=== PATIENT | female | born 1955 | race Caucasian/White ===

== ENCOUNTER 2022-02-25 00:16 | Outpatient (CLI) | payer OTHER, MEDICAID, SELFPAY | END 2022-02-25 00:17 | disposition home or self-care (01) | LOC: AMB 03-04 10:19 | PROVIDERS: PCP Family Medicine; Visit Provider Family Medicine | DX: R53.1 Weakness (principal) | CPT/HCPCS: A0425; A0427 ==

== ENCOUNTER 2022-02-25 00:53 | Emergency (ER) | payer OTHER, MEDICAID, SELFPAY ==
[2022-02-25 01:00] VITALS: BP 147/111; PULSE 110; RESP 18; TEMP 36.8; O2SAT 96; BMI 33.9
--- NOTE | 2022-02-25 01:01 | ED.GENADULT ---
HPI - General Adult General Chief complaint: Fall/Minor Trauma Stated complaint: fall Time Seen by Provider: 02/25/22 01:01 Source: patient and EMS Mode of arrival: EMS History of Present Illness HPI narrative: 66-year-old female presents to the emergency department by EMS. She reports that she fell today, does not remember what time. states that her legs have felt weak today, no specific fever or acute illness. She does not recall hitting her head. She read endorses some pain in the right ankle and right knee which she states are ongoing for her. She denies any pain at the scene according to EMS. They do report that her apartment was in some disarray. No obvious signs struggles or trauma. On specific questioning, she does admit to me that she has had a few beers and a couple of shots of rum. She does not elaborate on this. She was unable to get herself up per her report. She states that the last thing she remembered she was watching videos on her phone and then when she woke up she was on the floor. Denies any specific stroke-like symptoms, no hemiparesis, no vision changes, no confusion. 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 She arrives greeting all staff, asking for specific staff members, very social. She notes no hip pain, no back pain today. No recent fevers or illness. Denies any typical issues with urine control. EMS stated that she was incontinent of urine at the scene. Denies any bowel dysfunction. she states the history is benign. No major long-term health problems. She denies any recent surgeries, states that she takes no prescription medications, no allergies. ROS is notable for weakness in the legs, nonfocal with some scattered musculoskeletal complaints that wax and wane frequently throughout the interview. Specifically, she endorses and then denies pain in different Lower extremity joints. ROS is otherwise negative times 12 systems. Related Data Home Medications Medication Instructions Recorded Confirmed No Known Home Medications 02/25/22 02/25/22 Allergies Allergy/AdvReac Type Severity Reaction Status Date / Time No Known Drug Allergies Allergy Verified 02/25/22 01:49 PFSH PFS Social History Smoking Status: Current every day smoker How often do you have a drink containing alcohol: 2-3 times a week AUDIT-C Alcohol total score: 3 Non-prescribed substance use: denies use Exam Const: Vital Signs, click to edit/add: Vital Signs - 24 hr 02/25/22 01:00 02/25/22 01:46 02/25/22 01:30 Temperature 98.2 F Pulse Rate [Right Pulse Oximeter] 110 H 109 H Respiratory Rate 18 18 Blood Pressure [Le ft Upper Arm] 143/91 H Blood Pressure [Ri ght Upper Arm] 147/111 H Pulse Oximetry 96 96 99 Oxygen Delivery Me thod Room Air Room Air Documenting provider has reviewed patient's vital signs: yes Common normals: no apparent distress and alert General appearance: cooperative Orientation/consciousness: Yes awake Other: Generally, she looks as though she has aged quite a bit since I last saw her a couple of years ago. Social, talking with staff, asking for staff and other parts of the hospital to come say hi, she is unkempt today with kim litter strewn on her face, a smell of urine and a dirty nightgown with no bra. Her hair appears to not have been washed in many days. HENMT: Common normals: normocephalic and head/scalp atraumatic Head and scalp: normocephalic and atraumatic Face and sinus: normal facial exam Mouth: oral and palatal mucosa normal Throat: posterior oropharynx normal Eye: Common normals: PERRL, EOMs intact bilaterally and conjunctivae normal Conjunctiva: conjunctiva(e) normal Pupil: PERRL Neck & C-Spine: Common normals: full ROM, no lymphadenopathy and no meningeal signs Lymph: Lymphatic: no lymphadenopathy noted Resp: Common normals: normal respiratory effort, no use of accessory muscles and clear to auscultation bilaterally Effort & inspection: able to speak in complete sentences Auscultation: clear to auscultation bilaterally Cardio: Common normals: regular rate, regular rhythm, S1 normal heart sound, S2 normal heart sound, no murmurs and peripheral pulses 2+ throughout Rate: regular rate Rhythm: regular rhythm Heart sounds: S1 normal and S2 normal Peripheral pulses: pulses 2+ throughout GI: Common normals: Normal to inspection, nondistended, normoactive bowel sounds present, soft to palpation, non-tender and no hepatosplenomegaly Palpation: soft and no hepatosplenomegaly Back & Pelvis: Common normals: thoracic and lumbar spine normal to inspection and no thoracic nor lumbar tenderness Extremity: Other: she has a 1+ dependent seeming edema. I examined the ankle, knee and hip joints and they all have normal range of motion with no point bony tenderness or deformity. No effusions, redness or signs of trauma. Neuro: Sensorium/orientation: awake and alert Meningeal signs: no meningeal signs Speech: speech normal Motor exam: no tremor noted and no movement abnormalities noted Other: Can move all extremities on command. Smells of alcohol. Psych: Attitude: engaged Mood and affect: euthymic mood Insight: fair Judgement: fair Skin: Common normals: no rashes or lesions noted Narrative: No bruising, abrasions or signs of trauma. General skin exam: no rashes or lesions noted Course Vital Signs Vital signs: Initial Vital Signs Temperature 98.2 F 02/25/22 01:00 Temperature Source Temporal Artery Scan 02/25/22 01:00 Pulse Rate 110 H 02/25/22 01:00 Respiratory Rate 18 02/25/22 01:00 Blood Pressure 147/111 H 02/25/22 01:00 Blood Pressure Mean 123 02/25/22 01:00 Blood Pressure Position Supine 02/25/22 01:00 Pulse Oximetry 96 02/25/22 01:00 Oxygen Delivery Method 02/25/22 01:00 Vital Signs Temperature 98.2 F 02/25/22 01:00 Pulse Rate 110 H 02/25/22 01:00 Respiratory Rate 18 02/25/22 01:00 Blood Pressure 147/111 H 02/25/22 01:00 Pulse Oximetry 96 02/25/22 01:00 Oxygen Delivery Method 02/25/22 01:00 Temperature 98.2 F 02/25/22 01:00 Pulse Rate 109 H 02/25/22 01:46 Respiratory Rate 18 02/25/22 01:46 Blood Pressure 143/91 H 02/25/22 01:46 Pulse Oximetry 96 02/25/22 01:46 Oxygen Delivery Method 02/25/22 01:46 Medical Decision Making MDM Narrative Medical decision making narrative: Vital signs normal, afebrile with no signs of sepsis. Differential diagnosis including most likely alcohol intoxication, but cannot exclude stroke, sepsis, electrolyte dysfunction, dehydration, acute illness. Neurological exam is initially reassuring, will attempt to get her up to the bathroom to collect a urine sample. Will observe for any further focal neurological deficits. Basic labs including an alcohol level, COVID and influenza swabs. Urinalysis. Awaiting lab results. If any further deficits are seen on attempted ambulation, will order head CT, consider lumbar spine imaging if there are more deficits than initially suspected on exam. Update: 0120: Patient is able to get out of bed, stand, pivot transfer with a walker to use the bedside commode. She is able to get back into the bed with assistance. When the nurse asks her if her legs are moving better here than in her apartment, she states that no, they are still weak. Does not seem to have insight to the fact that she just did these maneuvers without difficulty. Update 150: Counseled patient on laboratory findings. Signs of chronic alcoholism due to elevated MCV, elevated liver enzymes, blood alcohol level of 0.21. Verbalize these findings to patient, she verbalizes understanding. She agrees with my assessment. I ask for her permission to tell her daughter about the alcohol problem, she does consent to this. She had asked us repeatedly to call her daughter and we will do so. If her daughter is available to pick her up, she may do so. She will need an adult to stay with her since she is intoxicated. She is receiving 1 L of fluids for the elevated lactate which is thought to be secondary to alcohol and dehydration only. Remainder of her laboratory studies are reassuring. Since she is able to bear weight, pivot and move without difficulty, she does not need to be hospitalized nor does she need further imaging workup this time. She was counseled on alcohol cessation, declines the need for further resources on this. Lab Data Lab results reviewed: Yes I reviewed the patient's lab results Labs: Lab Results 02/25/22 02/25/22 02/25/22 Range/Units 01:00 01:15 01:15 WBC 9.18 (4.50-11.00) K/uL RBC 3.93 L (4.00-5.20) m/uL Hgb 14.5 (12.0-16.0) gm/dL Hct 42.6 (33.0-51.0) % MCV 108 H (80-100) fL MCH 37 H (26-34) pg MCHC 34 (32-36) gm/dL RDW Coeff of Chivo 14.4 (11.5-15.5) % Plt Count 174 (140-440) K/uL Neut % (Auto) 81.6 H (42.0-72.0) % Lymph % (Auto) 9.7 L (20-44) % [place]ade % (Auto) 7.7 (0.0-11.0) % Eos % (Auto) 0.4 (0.0-7.0) % Baso % (Auto) 0.3 (0.0-3.0) % Neut # (Auto) 7.50 H (1.7-7.0) K/uL Lymph # (Auto) 0.90 (0.90-2.90) K/uL Dade # (Auto) 0.70 (0.00-0.90) K/UL Eos # (Auto) 0.04 (0.00-0.50) K/uL Baso # (Auto) 0.03 (0.00-0.30) K/uL Abs Immat Gran (auto) 0.03 (0.00-0.30) K/uL Imm/Tot Granulo (auto) 0.3 % Sodium 138 (135-149) mmol/L Potassium 3.6 (3.6-5.1) mmol/L Chloride 100 (96-114) mmol/L Carbon Dioxide 22 (20-32) mmol/L BUN 4 L (7-30) mg/dL Creatinine 0.4 L (0.5-1.5) mg/dL Estimated GFR 110 ml/min Glucose 123 H (60-115) mg/dL Lactate (0.5-1.9) mmol/L Calcium 9.8 (8.4-10.6) mg/dL Total Bilirubin 1.4 (0.1-1.5) mg/dL AST 250 H (12-35) U/L ALT 79 H (4-35) U/L Alkaline Phosphatase 198 H (40-150) U/L Total Protein 7.7 (6.0-8.3) g/dL Albumin 4.3 (3.3-5.0) g/dL Urine Color (Yellow) Urine Appearance (Clear) Urine pH (5.0-8.5) Ur Specific [place] (1.000-1.030) Urine Protein (Negative) Urine Glucose (UA) (Negative) Urine Ketones (Negative) Urine Blood (Negative) Urine Nitrite (Negative) Urine Bilirubin (Negative) Urine Urobilinogen (0.2-1.0) Ur Leukocyte Esterase (Negative) Urine RBC (0-2) Urine WBC (0-5) Ur Squamous Epith Cells (None-Few) Urine Bacteria (None) Ethyl Alcohol 0.21 H (0.01-0.03) % SARS-CoV-2 (PCR) Negative SARS-CoV-2 (Negative) Influenza Type A (PCR) Negative PCR FLU A (Negative) Influenza Type B (PCR) Negative PCR FLU B (Negative) 02/25/22 02/25/22 Range/Units 01:15 01:30 WBC (4.50-11.00) K/uL RBC (4.00-5.20) m/uL Hgb (12.0-16.0) gm/dL Hct (33.0-51.0) % MCV (80-100) fL MCH (26-34) pg MCHC (32-36) gm/dL RDW Coeff of Chivo (11.5-15.5) % Plt Count (140-440) K/uL Neut % (Auto) (42.0-72.0) % Lymph % (Auto) (20-44) % [place] % (Auto) (0.0-11.0) % Eos % (Auto) (0.0-7.0) % Baso % (Auto) (0.0-3.0) % Neut # (Auto) (1.7-7.0) K/uL Lymph # (Auto) (0.90-2.90) K/uL [place] # (Auto) (0.00-0.90) K/UL Eos # (Auto) (0.00-0.50) K/uL Baso # (Auto) (0.00-0.30) K/uL Abs Immat Gran (auto) (0.00-0.30) K/uL Imm/Tot Granulo (auto) % Sodium (135-149) mmol/L Potassium (3.6-5.1) mmol/L Chloride (96-114) mmol/L Carbon Dioxide (20-32) mmol/L BUN (7-30) mg/dL Creatinine (0.5-1.5) mg/dL Estimated GFR ml/min Glucose (60-115) mg/dL Lactate 3.4 H (0.5-1.9) mmol/L Calcium (8.4-10.6) mg/dL Total Bilirubin (0.1-1.5) mg/dL AST (12-35) U/L ALT (4-35) U/L Alkaline Phosphatase (40-150) U/L Total Protein (6.0-8.3) g/dL Albumin (3.3-5.0) g/dL Urine Color Yellow (Yellow) Urine Appearance Clear (Clear) Urine pH 7.0 (5.0-8.5) Ur Specific [place] 1.010 (1.000-1.030) Urine Protein Negative (Negative) Urine Glucose (UA) Negative (Negative) Urine Ketones 1+ A (Negative) Urine Blood Negative (Negative) Urine Nitrite Negative (Negative) Urine Bilirubin Negative (Negative) Urine Urobilinogen 1.0 (0.2-1.0) Ur Leukocyte Esterase Trace A (Negative) Urine RBC 0-2 (0-2) Urine WBC 0-2 (0-5) Ur Squamous Epith Cells Few (None-Few) Urine Bacteria None (None) Ethyl Alcohol (0.01-0.03) % SARS-CoV-2 (PCR) (Negative) Influenza Type A (PCR) (Negative) Influenza Type B (PCR) (Negative) Discharge Plan Discharge Clinical Impression: Alcoholism, chronic, Alcohol intoxication Patient Disposition: Home w/ Parent or Adult Condition: Stable Instructions: Alcohol Intoxication (ED), Abuse of Alcohol (DC) Additional Instructions: You passed out from drinking alcohol. Labs clearly show that you are drinking too much alcohol for quite some time. Your liver is showing signs of some mild chronic damage and your MCV level, a component of your basic blood count also shows signs of ongoing alcohol use. This is a problem for you. You must quit drinking alcohol. Seek input from the [facility] department. As we discussed, I recommend you start with getting all alcohol out of your house and that you stop purchasing it. Seek input from family and friends for support. Your report that your legs are weak but we watch you get out of bed, ambulate to the bathroom, and get back in bed without difficulty. I suspect that the alcohol intoxication is making things weaker than usual for you. Chronic alcohol use will also lead to muscle weakness. There were no signs of a stroke or sudden new change today. You do not require hospitalization at this time. We gave you for the help counteract the effects of the alcohol. Please make an appointment with a primary care doctor to have your liver enzymes rechecked in a few weeks to ensure that things are healing as you quit drinking alcohol. Your blood pressure is also mildly elevated and should be recheck. This is a common finding in people that drink too much alcohol. Activity Level: No Restrictions Discharge Diet: Regular Prescriptions: No Action No Known Home Medications Follow Up/Referrals: Flora Parker MD [Primary Care Provider] - Stand Alone Forms: Stere[employer] Info Instructions
[2022-02-25 01:21] LABS: Lactate* 3.4 mmol/L (0.5-1.9)
[2022-02-25 01:22] LABS: Basophils Absolute Auto 0.03 K/uL (0.00-0.30); Basophils Percent Auto 0.3 % (0.0-3.0); Eosinophils Absolute Auto 0.04 K/uL (0.00-0.50); Eosinophils Percent Auto 0.4 % (0.0-7.0); Hematocrit 42.6 % (33.0-51.0); Hemoglobin* 14.5 gm/dL (12.0-16.0); Immature Granulocytes Abs Auto 0.03 K/uL (0.00-0.30); Immature Granulocytes Pct Auto 0.3 %; Lymphocytes Percent Auto 9.7 % (20-44); Mean Corpuscular HGB Conc 34 gm/dL (32-36); Mean Corpuscular Hemoglobin 37 pg (26-34); Mean Corpuscular Volume 108 fL (80-100); Monocytes Percent Auto 7.7 % (0.0-11.0); Neutrophils Percent Auto 81.6 % (42.0-72.0); Platelet Count* 174 K/uL (140-440); RDW Coefficient of Variation % 14.4 % (11.5-15.5); Red Blood Count 3.93 m/uL (4.00-5.20); White Blood Count* 9.18 K/uL (4.50-11.00)
[2022-02-25 01:25] LABS: Slide Review Reflex No
[2022-02-25 01:30] VITALS: O2SAT 99
[2022-02-25 01:36] LABS: Appearance Urine Clear (Clear); Bilirubin Urine Negative (Negative); Blood Urine Negative (Negative); Color Urine Yellow (Yellow); Glucose Urine Negative (Negative); Ketones Urine 1+ (Negative); Leukocyte Esterase Urine Trace (Negative); Nitrite Urine Negative (Negative); Protein Urine Negative (Negative)
[2022-02-25 01:37] LABS: Albumin* 4.3 g/dL (3.3-5.0); Chloride* 100 mmol/L (96-114); Sodium* 138 mmol/L (135-149)
[2022-02-25 01:38] LABS: Potassium* 3.6 mmol/L (3.6-5.1)
[2022-02-25 01:40] LABS: Alanine Aminotransferase* 79 U/L (4-35); Alkaline Phosphatase* 198 U/L (40-150); Aspartate Amino Transferase* 250 U/L (12-35); Bilirubin Total* 1.4 mg/dL (0.1-1.5); Blood Urea Nitrogen* 4 mg/dL (7-30); Calcium* 9.8 mg/dL (8.4-10.6); Carbon Dioxide* 22 mmol/L (20-32); Creatinine* 0.4 mg/dL (0.5-1.5); Estimated Glomerular Filt Rate 110 ml/min; Glucose* 123 mg/dL (60-115); Total Protein* 7.7 g/dL (6.0-8.3)
[2022-02-25] MEDS: LACTATED RINGERS 1000 ML 1,000 ML IV (01:40)
[2022-02-25] MEDS: IBUPROFEN 400 MG TABLET 800 MG PO (01:40)
[2022-02-25 01:41] LABS: Ethanol* 0.21 % (0.01-0.03)
[2022-02-25 01:43] LABS: PCR FLU A Negative PCR FLU A (Negative); PCR FLU B Negative PCR FLU B (Negative)
[2022-02-25 01:44] LABS: RBC Urine 0-2 (0-2); Squamous Epithelial Cell Urine Few (None-Few); WBC Urine 0-2 (0-5)
[2022-02-25 01:46] VITALS: BP 143/91; PULSE 109; RESP 18; O2SAT 96
[2022-02-25 01:49] LABS: SARS PCR* Negative SARS-CoV-2 (Negative)
[2022-02-25 01:55] LABS: C Reactive Protein* 3.7 mg/dL (0.5-1.0)
[2022-02-25 02:50] VITALS: BP 133/89; PULSE 99; RESP 18; TEMP 36.8
--- NOTE | 2022-02-25 06:09 | ED.NURSE ---
pt requested update to dtr previously, unable to get a hold of dtr, dtr did call back at 0610, update on patient visit and discharge home with friend.
== END 2022-02-25 02:51 | disposition home or self-care (01) ==
PROVIDERS: Emergency Provider Family Medicine; PCP Family Medicine
DX: F10.129 Alcohol abuse with intoxication, unspecified (principal)
CPT/HCPCS: 36415; 80053; 81003; 81015; 82077; 83605; 85025; 86140; 87631; 94761; 99283; A9270; J7120

== ENCOUNTER 2022-03-08 18:13 | Outpatient (CLI) | payer OTHER, MEDICAID, SELFPAY | END 2022-03-08 18:14 | disposition home or self-care (01) | LOC: AMB 03-12 12:23 | PROVIDERS: PCP Family Medicine; Visit Provider Emergency Medicine Emergency Medical Services | DX: R53.1 Weakness (principal) | CPT/HCPCS: A0425; A0429 ==

== ENCOUNTER 2022-03-08 19:02 | Inpatient (IN) | payer OTHER, MEDICAID, SELFPAY ==
[2022-03-08] VITALS (9 sets, daily range): BP systolic 146–152; BP diastolic 85–98; PULSE 96–104; RESP 16; TEMP 36.4; O2SAT 94–97; BMI 45.3
--- NOTE | 2022-03-08 20:05 | CRLHL7_ITS ---
For Patients: As a result of the Century Cures Act, medical imaging exams and procedure reports are released immediately into your electronic medical record. You may view this report before your referring provider. If you have questions, please contact your health care provider. INDICATION: Fall. TECHNIQUE: Three views of left ankle. COMPARISON: None available. FINDINGS: Diffuse demineralization. Oblique fracture involving the fibular distal metadiaphysis with minimal lateral displacement. No dislocation or additional fracture identified. The ankle mortise appears not widened. Mild tibiotalar joint space narrowing and osteophytosis. Plantar calcaneal enthesophyte. Generalized soft tissue edema/thickening. IMPRESSION: Minimally displaced left distal fibular fracture. Dictated by John Calvert MD @ 03/08/2022 8:53:33 PM Dictated by: John Calvert MD @ 03/08/2022 20:53:37 (Electronically Signed)
--- NOTE | 2022-03-08 20:17 | ED.NURSE ---
Pt reports NOT taking the following: Naproxen 500mg BID (3 bottles partially filled) Cyclobenzaprine 10mg HS PRN Atenolol 25mg Daily Lorazepam 0.5mg 1-2 tabs daily PRN D[address] 500mg HS Lisinopril/HCTZ 10-12.5mg Daily Naltrexone 50mg daily Trazodone 50mg HS PRN (adverse effects: bad dreams, hostility, anger) HCTZ 12.5mg daily Tramadol 50mg 1-2tabs q6hrs PRN Amlodipine 5mg daily Abx: Cephalexin 500mg 4 times a day x5days Bactrim 800-160mg BID X7days Augmentin 875-125mg BID [id number] (3 bottles of partially filled)
[2022-03-08 20:19] LABS: Lactate* 0.9 mmol/L (0.5-1.9)
[2022-03-08 20:21] LABS: Basophils Absolute Auto 0.06 K/uL (0.00-0.30); Basophils Percent Auto 0.6 % (0.0-3.0); Eosinophils Absolute Auto 0.07 K/uL (0.00-0.50); Eosinophils Percent Auto 0.6 % (0.0-7.0); Hematocrit 39.5 % (33.0-51.0); Hemoglobin* 13.6 gm/dL (12.0-16.0); Immature Granulocytes Abs Auto 0.12 K/uL (0.00-0.30); Immature Granulocytes Pct Auto 1.1 %; Lymphocytes Percent Auto 7.5 % (20-44); Mean Corpuscular HGB Conc 34 gm/dL (32-36); Mean Corpuscular Hemoglobin 37 pg (26-34); Mean Corpuscular Volume 107 fL (80-100); Monocytes Percent Auto 9.7 % (0.0-11.0); Neutrophils Percent Auto 80.5 % (42.0-72.0); Platelet Count* 211 K/uL (140-440); RDW Coefficient of Variation % 13.9 % (11.5-15.5); White Blood Count* 10.87 K/uL (4.50-11.00)
[2022-03-08 20:34] LABS: Slide Review Reflex No
--- NOTE | 2022-03-08 20:34 | CRLHL7_ITS ---
For Patients: As a result of the Century Cures Act, medical imaging exams and procedure reports are released immediately into your electronic medical record. You may view this report before your referring provider. If you have questions, please contact your health care provider. DATE: 03/08/2022. CLINICAL HISTORY: Fall. TECHNIQUE: Standard helical CT image acquisition of the brain was performed. COMPARISON: Head CT dated 11/26/2013. FINDINGS: There is no intracranial hemorrhage. No extra-axial collection, mass effect, or midline shift. Stephens-white matter differentiation is preserved. Mild generalized parenchymal volume loss. No acute hydrocephalus. No displaced calvarial fracture. The orbits are unremarkable. The paranasal sinuses are unremarkable. The mastoid air cells are unremarkable. The soft tissues are unremarkable. IMPRESSION: No CT evidence of acute intracranial abnormality or closed-head injury. Please note that all CT scans at this facility use dose modulation, iterative reconstruction, and/or weight-based dosing when appropriate to reduce radiation dose to as low as reasonably achievable. Dictated by Addi Jose MD @ 03/08/2022 9:31:02 PM (Electronically Signed)
--- NOTE | 2022-03-08 20:35 | CRLHL7_ITS ---
For Patients: As a result of the Century Cures Act, medical imaging exams and procedure reports are released immediately into your electronic medical record. You may view this report before your referring provider. If you have questions, please contact your health care provider. DATE: CLINICAL HISTORY: Trauma. TECHNIQUE: Helical CT acquisition of the cervical spine was performed. Coronal and sagittal reformations were performed and interpreted. COMPARISON: None available. FINDINGS: There is no evidence of acute displaced fracture or traumatic malalignment of the cervical spine. The facets are well aligned. Vertebral body heights are maintained without evidence of significant compression deformity. No evidence of significant trauma at the craniocervical junction. Mild cervical spondylosis. No evidence of severe spinal canal stenosis. The visualized prevertebral soft tissues are unremarkable. The visualized lung apices are unremarkable. IMPRESSION: No acute displaced fracture or traumatic malalignment of the cervical spine. Please note that all CT scans at this facility use dose modulation, iterative reconstruction, and/or weight-based dosing when appropriate to reduce radiation dose to as low as reasonably achievable. Dictated by Addi Jose MD @ 03/08/2022 9:33:25 PM (Electronically Signed)
--- NOTE | 2022-03-08 20:38 | ED.WEAKNESS ---
HPI - Weakness General Chief complaint: Weakness Stated complaint: Weakness Time Seen by Provider: 03/08/22 19:58 History of Present Illness HPI Narrative: Pt is a 67 year old woman who was seen and found to be intoxicated 11 days ago. At that time she presented with weakness and was found to have fallen. She was complaining of left ankle pain as well. Pt was found to have a blood alcohol of 0.21 and had mild elevation of her AST and ALT. Pt was treated and released. Pt has not been able to function since that time and her daughter has been providing care. Pt is unable to put wait on her left leg. Pt has a history of alcohol abuse and has stopped all of her medications as listed below. She is currently not taking any medications. Pt has no chest pain, shortness of breath, fevers, chills, night sweats. She does state that her urine is foul smelling. No ther symptoms beyond generalized weakness. Related Data Home Medications Medication Instructions Recorded Confirmed No Known Home Medications 02/25/22 02/25/22 Allergies Allergy/AdvReac Type Severity Reaction Status Date / Time No Known Drug Allergies Allergy Verified 02/25/22 01:49 Review of Systems Status of ROS: Reports: 10 or more systems reviewed and unremarkable except as noted in History and below [facility] Medical History (Updated 03/09/22 @ 01:22 by Omkar Bansal MD) Anxiety and depression Bipolar disorder (2009) Chronic low back pain Hypertension Malignant melanoma (2012) Osteopenia Poorly controlled mild persistent asthma Vitamin D deficiency (2017) Surgical History (Updated 03/08/22 @ 20:46 by Omkar Bansal MD) History of carpal tunnel surgery of right wrist (2008) History of hysterectomy (1991) History of melanoma excision (2012) History of tonsillectomy Social History Smoking Status: Former smoker Second hand tobacco smoke exposure: No How often do you have a drink containing alcohol: monthly or less AUDIT-C Alcohol total score: 1 Non-prescribed substance use: denies use service: No Exam Narrative: Exam Narrative: EXAM GENERAL: Patient appears disheveled and unkept EYES: No scleral icterus. THYROID: no thyroid nodules or thyromegaly. LYMPH: No supraclavicular or cervical lymphadenopathy. SKIN: Visible skin seen during exam normal or with benign process only. EXT: No dependent lower extremity pedal edema. Pain and swelling noted in the left ankle. HEART: Regular rate and rhythm with no murmurs, rubs, or gallops. LUNGS: Clear to auscultation bilaterally with no crackles or wheezes. ABD: Soft, non tender, non distended. PSYCH: Good eye contact, speech is not pressured. Const: Vital Signs, click to edit/add: Vital Signs - 24 hr 03/08/22 19:04 03/08/22 19:47 03/08/22 19:47 Temperature 97.5 F L Pulse Rate 97 Pulse Rate [Pulse Oximeter] 103 H 96 Respiratory Rate 16 Blood Pressure Blood Pressure [Le ft Upper Arm] 152/95 H 147/90 H Pulse Oximetry 96 96 96 Oxygen Delivery Me thod Room Air 03/08/22 20:00 03/08/22 20:02 03/08/22 20:15 Temperature Pulse Rate 96 104 H 101 H Pulse Rate [Pulse Oximeter] Respiratory Rate Blood Pressure 152/98 H Blood Pressure [Le ft Upper Arm] Pulse Oximetry 96 96 96 Oxygen Delivery Me thod 03/08/22 21:04 03/08/22 22:00 03/08/22 22:02 Temperature Pulse Rate 100 96 97 Pulse Rate [Pulse Oximeter] Respiratory Rate Blood Pressure 150/85 H Blood Pressure [Le ft Upper Arm] Pulse Oximetry 97 95 94 Oxygen Delivery Me thod 03/08/22 23:48 03/09/22 01:30 03/09/22 04:30 Temperature 98.0 F 98.8 F Pulse Rate Pulse Rate [Pulse Oximeter] 100 96 98 Respiratory Rate 16 16 14 Blood Pressure Blood Pressure [Le ft Upper Arm] 146/92 H 148/81 H 154/83 H Pulse Oximetry 94 94 93 Oxygen Delivery Me thod Room Air Room Air Course Course Hospital Course: Medications at the patient has discontinued the following Naproxin, Cyclobenzaprine, Atenolol, Lorazepam, Divalproex, Lisinopril, HCTZ, Naltrexone, Trazodone, Tramadol, Amlodipine Xray of the left ankle, CT of the head and neck, etoh, tox screen, cbc, cmp, lactate, troponin, ekg ordered Reevaluation(s) Reevaluation #1: Pt has UTI noted on UA. Urine and blood cultured and pt given a dose of IV Rocephin. Other labs show chronically elevated AST, ALT and Alk Phos. Troponin negative. EKG nsr. Toxicollogy and ETOH negative. Time: 12:30 Reevaluation #2: CAM walker placed on left ankle due to fibular fracture. Pt needs to board in ED. Given Thaimine, Folate and Multivitamin as well as Ativan and placed on CIWA protocol Pt unable to care for self at home. Time: 01:13 Vital Signs Vital signs: Initial Vital Signs Temperature 97.5 F L 03/08/22 19:04 Temperature Source Temporal Artery Scan 03/08/22 19:04 Pulse Rate 103 H 03/08/22 19:04 Respiratory Rate 16 03/08/22 19:04 Blood Pressure 152/95 H 03/08/22 19:04 Blood Pressure Mean 114 03/08/22 19:04 Pulse Oximetry 96 03/08/22 19:04 Oxygen Delivery Method 03/08/22 19:04 Vital Signs Temperature 97.5 F L 03/08/22 19:04 Pulse Rate 103 H 03/08/22 19:04 Respiratory Rate 16 03/08/22 19:04 Blood Pressure 152/95 H 03/08/22 19:04 Pulse Oximetry 96 03/08/22 19:04 Oxygen Delivery Method 03/08/22 19:04 Temperature 98.8 F 03/09/22 04:30 Pulse Rate 98 03/09/22 04:30 Respiratory Rate 14 03/09/22 04:30 Blood Pressure 154/83 H 03/09/22 04:30 Pulse Oximetry 93 03/09/22 04:30 Oxygen Delivery Method 03/09/22 04:30 MDM - Weakness MDM Narrative Medical decision making narrative: Pt presents unable to walk and take care of herself. Pt was seen 11 days ago at which time she was intoxicated. Pt treated and released. Pt has been unable to bear weight on the left leg. X ray tonight shows fibular fracture which is placed in a CAM walker until ortho can see her. Pt also weak and has UTI. Given IV Rocephin and Urine and blood cultured. Pt has evidence of alcoholic hepatitis. Pt placed on CIWA protocol and will board in the ED as no beds available and pt unable to care for herself. Pt also brings in a bag of meds that she has stopped as she is not on any presciption medications currently. Pt has Bipolar disorder. Pt is a safety risk and will need to stay. Because she has a history of alcohol abuse I did scan her head and cervical spine. No fractures. Pt also complained of pain and swelling in the left leg antwan ultrasound negative for clot. Pt boarded in the ED overnight and is now admitted. Differential Diagnosis Differential diagnosis: Likely acute myocardial infarction, anemia, hypoglycemia, hypothyroidism, rhabdomyolysis, sepsis and dehydration Lab Data Labs: Lab Results 03/08/22 03/08/22 03/08/22 Range/Units 20:14 20:14 20:14 WBC 10.87 (4.50-11.00) K/uL RBC 3.70 L (4.00-5.20) m/uL Hgb 13.6 (12.0-16.0) gm/dL Hct 39.5 (33.0-51.0) % MCV 107 H (80-100) fL MCH 37 H (26-34) pg MCHC 34 (32-36) gm/dL RDW Coeff of [place]ivo 13.9 (11.5-15.5) % Plt Count 211 (140-440) K/uL Neut % (Auto) 80.5 H (42.0-72.0) % Lymph % (Auto) 7.5 L (20-44) % [place] % (Auto) 9.7 (0.0-11.0) % Eos % (Auto) 0.6 (0.0-7.0) % Baso % (Auto) 0.6 (0.0-3.0) % Neut # (Auto) 8.80 H (1.7-7.0) K/uL Lymph # (Auto) 0.80 L (0.90-2.90) K/uL [place] # (Auto) 1.10 H (0.00-0.90) K/UL Eos # (Auto) 0.07 (0.00-0.50) K/uL Baso # (Auto) 0.06 (0.00-0.30) K/uL Sodium 132 L (135-149) mmol/L Potassium 3.4 L (3.6-5.1) mmol/L Chloride 98 (96-114) mmol/L Carbon Dioxide 26 (20-32) mmol/L BUN 8 (7-30) mg/dL Creatinine 0.4 L (0.5-1.5) mg/dL Estimated Creat Clear 41.76 Estimated GFR 109 ml/min Glucose 115 (60-115) mg/dL Lactate 0.9 (0.5-1.9) mmol/L Calcium 9.3 (8.4-10.6) mg/dL Total Bilirubin 1.6 H (0.1-1.5) mg/dL AST 222 H (12-35) U/L ALT 90 H (4-35) U/L Alkaline Phosphatase 195 H (40-150) U/L Troponin I < 0.01 L (0.01-0.04) ng/mL Total Protein 7.6 (6.0-8.3) g/dL Albumin 4.3 (3.3-5.0) g/dL Urine Color (Yellow) Urine Appearance (Clear) Urine pH (5.0-8.5) Ur Specific [place] (1.000-1.030) Urine Protein (Negative) Urine Glucose (UA) (Negative) Urine Ketones (Negative) Urine Blood (Negative) Urine Nitrite (Negative) Urine Bilirubin (Negative) Urine Urobilinogen (0.2-1.0) Ur Leukocyte Esterase (Negative) Urine RBC (0-2) Urine WBC (0-5) Ur Squamous Epith Cells (None-Few) Urine Bacteria (None) Urine Opiates Screen (Negative) Ur Oxycodone Screen (Negative) Urine Methadone Screen (Negative) Ur Propoxyphene Screen (Negative) Ur Barbiturates Screen (Negative) U Tricyclic Antidepress (Negative) Ur Phencyclidine Scrn (Negative) Ur Amphetamines Screen (Negative) U Methamphetamines Scrn (Negative) U Benzodiazepines Scrn (Negative) Urine Cocaine Screen (Negative) U Marijuana (THC) Screen (Negative) Ur Drug Screen Comment Ethyl Alcohol < 0.01 L (0.01-0.03) % SARS-CoV-2 (PCR) (Negative) Influenza Type A (PCR) (Negative) Influenza Type B (PCR) (Negative) RSV (PCR) (Negative) 03/08/22 03/08/22 03/09/22 Range/Units 20:45 20:45 01:10 WBC (4.50-11.00) K/uL RBC (4.00-5.20) m/uL Hgb (12.0-16.0) gm/dL Hct (33.0-51.0) % MCV (80-100) fL MCH (26-34) pg MCHC (32-36) gm/dL RDW Coeff of [place] (11.5-15.5) % Plt Count (140-440) K/uL Neut % (Auto) (42.0-72.0) % Lymph % (Auto) (20-44) % [place] % (Auto) (0.0-11.0) % Eos % (Auto) (0.0-7.0) % Baso % (Auto) (0.0-3.0) % Neut # (Auto) (1.7-7.0) K/uL Lymph # (Auto) (0.90-2.90) K/uL [place] # (Auto) (0.00-0.90) K/UL Eos # (Auto) (0.00-0.50) K/uL Baso # (Auto) (0.00-0.30) K/uL Sodium (135-149) mmol/L Potassium (3.6-5.1) mmol/L Chloride (96-114) mmol/L Carbon Dioxide (20-32) mmol/L BUN (7-30) mg/dL Creatinine (0.5-1.5) mg/dL Estimated Creat Clear Estimated GFR ml/min Glucose (60-115) mg/dL Lactate (0.5-1.9) mmol/L Calcium (8.4-10.6) mg/dL Total Bilirubin (0.1-1.5) mg/dL AST (12-35) U/L ALT (4-35) U/L Alkaline Phosphatase (40-150) U/L Troponin I (0.01-0.04) ng/mL Total Protein (6.0-8.3) g/dL Albumin (3.3-5.0) g/dL Urine Color [place] A (Yellow) Urine Appearance Cloudy A (Clear) Urine pH 6.5 (5.0-8.5) Ur Specific [place] 1.015 (1.000-1.030) Urine Protein Trace A (Negative) Urine Glucose (UA) Negative (Negative) Urine Ketones 1+ A (Negative) Urine Blood Negative (Negative) Urine Nitrite Positive A (Negative) Urine Bilirubin 1+ A (Negative) Urine Urobilinogen >=8.0 (0.2-1.0) Ur Leukocyte Esterase 1+ A (Negative) Urine RBC 0-2 (0-2) Urine WBC 10-25 A (0-5) Ur Squamous Epith Cells Few (None-Few) Urine Bacteria Many A (None) Urine Opiates Screen Negative (Negative) Ur Oxycodone Screen Negative (Negative) Urine Methadone Screen Negative (Negative) Ur Propoxyphene Screen Negative (Negative) Ur Barbiturates Screen Negative (Negative) U Tricyclic Antidepress Negative (Negative) Ur Phencyclidine Scrn Negative (Negative) Ur Amphetamines Screen Negative (Negative) U Methamphetamines Scrn Negative (Negative) U Benzodiazepines Scrn Negative (Negative) Urine Cocaine Screen Negative (Negative) U Marijuana (THC) Screen Negative (Negative) Ur Drug Screen Comment See Note Ethyl Alcohol (0.01-0.03) % SARS-CoV-2 (PCR) Negative SARS-CoV-2 (Negative) Influenza Type A (PCR) Negative PCR FLU A (Negative) Influenza Type B (PCR) Negative PCR FLU B (Negative) RSV (PCR) Negative PCR RSV (Negative) Discharge Plan Discharge Clinical Impression: Closed left fibular fracture, Alcoholism, chronic, Chronic alcoholic hepatitis, Bipolar disorder Patient Disposition: Admitted As Inpatient Condition: Stable Activity Level: Other Discharge Diet: Other
[2022-03-08 20:40] LABS: Albumin* 4.3 g/dL (3.3-5.0); Chloride* 98 mmol/L (96-114); Potassium* 3.4 mmol/L (3.6-5.1); Sodium* 132 mmol/L (135-149)
[2022-03-08 20:42] LABS: Creatinine* 0.4 mg/dL (0.5-1.5); Est. Creatinine Clearance* 41.76; Estimated Glomerular Filt Rate 109 ml/min
[2022-03-08 20:43] LABS: Alanine Aminotransferase* 90 U/L (4-35); Alkaline Phosphatase* 195 U/L (40-150); Aspartate Amino Transferase* 222 U/L (12-35); Bilirubin Total* 1.6 mg/dL (0.1-1.5); Blood Urea Nitrogen* 8 mg/dL (7-30); Calcium* 9.3 mg/dL (8.4-10.6); Carbon Dioxide* 26 mmol/L (20-32); Glucose* 115 mg/dL (60-115); Total Protein* 7.6 g/dL (6.0-8.3)
--- NOTE | 2022-03-08 20:50 | ED.NURSE ---
Patient assisted to bedside commode with 1A and walker. Urine sample collected and sent to lab.
[2022-03-08 20:51] LABS: Ethanol* < 0.01 % (0.01-0.03)
[2022-03-08 20:55] LABS: Troponin I* < 0.01 ng/mL (0.01-0.04)
[2022-03-08 21:00] LABS: Appearance Urine Cloudy (Clear); Bilirubin Urine 1+ (Negative); Blood Urine Negative (Negative); Color Urine Amber (Yellow); Glucose Urine Negative (Negative); Ketones Urine 1+ (Negative); Leukocyte Esterase Urine 1+ (Negative); Nitrite Urine Positive (Negative); Protein Urine Trace (Negative); Specific Gravity Urine 1.015 (1.000-1.030); Urobilinogen Urine >=8.0 (0.2-1.0); pH Urine 6.5 (5.0-8.5)
[2022-03-08 21:04] LABS: RBC Urine 0-2 (0-2)
[2022-03-08 21:05] LABS: Amphetamine Screen Urine Negative (Negative); Bacteria Urine Many; Barbiturate Screen Urine Negative (Negative); Benzodiazepines Screen Urine Negative (Negative); Cannabinoid Screen Urine Negative (Negative); Cocaine Screen Urine Negative (Negative); Methadone Screen Urine Negative (Negative); Methamphetamines Screen Urine Negative (Negative); Opiate Screen Urine Negative (Negative); Oxycodone Screen Urine Negative (Negative); Phencyclidine Screen Urine Negative (Negative); Squamous Epithelial Cell Urine Few (None-Few); Tricyclic Antidepressant Urine Negative (Negative)
--- NOTE | 2022-03-08 22:05 | CRLHL7_ITS ---
For Patients: As a result of the Century Cures Act, medical imaging exams and procedure reports are released immediately into your electronic medical record. You may view this report before your referring provider. If you have questions, please contact your health care provider. INDICATION: Leg pain and swelling. TECHNIQUE: Ultrasound venous duplex lower left extremity. Compression venous exam was performed using parks-scale, color Doppler, and spectral Doppler analysis. COMPARISON: None. FINDINGS: Deep veins: Sonographic imaging demonstrates the left common femoral, deep femoral, superficial femoral, popliteal, posterior tibial and the contralateral right common femoral veins to be fully compressible with normal color Doppler blood flow. Superficial veins: Greater saphenous vein is fully compressible. No popliteal cyst. IMPRESSION: Normal left lower extremity venous ultrasound, no sign of deep venous thrombosis. Dictated by Abhi Martin MD @ 03/09/2022 1:00:49 AM (Electronically Signed)
[2022-03-08] MEDS: cefTRIAXone 1 GM in 0.9 % SODIUM CHLORIDE Mini-bag 100 ML IVPB (22:53)
[2022-03-08] MEDS: THIAMINE 100 MG TABLET PO (22:53)
--- NOTE | 2022-03-08 23:06 | ED.NURSE ---
Patient and daughter updated with admission.
[2022-03-08] MEDS: LORazepam 2 MG/ML inj 1 MG IVP (23:51)
[2022-03-09] VITALS (8 sets, daily range): BP systolic 119–154; BP diastolic 65–83; PULSE 84–110; RESP 14–18; TEMP 36.4–37.2; O2SAT 90–94; BMI 37.8
--- NOTE | 2022-03-09 00:51 | ED.NURSE ---
CAM boot applied to left foot. Patient moved to a med-surg bed. Utilized the bedside commode. Assisted to reposition to side. Call light in place.
[2022-03-09 02:01] LABS: PCR FLU A Negative PCR FLU A (Negative); PCR FLU B Negative PCR FLU B (Negative); PCR RSV Negative PCR RSV (Negative); SARS PCR* Negative SARS-CoV-2 (Negative)
[2022-03-09] MEDS: LORazepam 2 MG/ML inj 1 MG IVP (06:46)
--- NOTE | 2022-03-09 08:13 | ED.NURSE ---
patient up to the [facility] and voided about 200 cc of nirmal urine. has a cam boot on the left foot. using the walker to help stand. cleaned patient up. patient attempting to take a couple of steps and having difficulty with walker thinking is caught on something and then patient unable to get the right knee to work. staff of one assist behind the patient unable to continue to move the knee and was guided down to floor and yelled out for help. Dr. Ortiz and sylviaiber able to lift the patient into bed and repositioned. Asked patient if anything hurts and declined anything new. has been having trouble with the right knee lately being weak. Dr. Ortiz is aware of event. VS--98.9 degrees tympanic, [phone] on room air. given a menu to order some food.
--- NOTE | 2022-03-09 08:36 | ED.NURSE ---
placed a diet order in the computer and called a breakfast order into the kitchen for patient.
--- NOTE | 2022-03-09 09:01 | ED.NURSE ---
given report to Jefry Silvestre who will resume care of the patient on M/S unit. plan to admit to room CCU 1
[2022-03-09] MEDS: MULTIVITAMIN/MINERALS 1 TABLET 1 TAB PO (09:58)
[2022-03-09] MEDS: FOLIC ACID 1 MG TABLET PO (09:58)
--- NOTE | 2022-03-09 10:39 | PM.IMHP1 ---
Hospitalist- H&P: HPI History of Present Illness Time Seen by Provider: 10:39 Date Seen: 03/09/22 Chief complaint: Weakness Narrative: Zainab Bermudez is a 67 year old female who fell on floor of her apartment on February 25. When she woke up on the floor and found she was unable to get up, so she called the ambulance and brought her to the ER. She had left ankle pain at the time. She was discharged home; a neighbor came and got her. She was having trouble getting into bed and was needing the assistance of her friend and was hanging onto the phillips. She slid down the wall at one point. She says her daughter has been helping her at home since she fell. Due to back pain and the new pain in her left leg, she is now unable to care for herself or her cat, even though she lives in a small [facility] apartment. 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 Over the past year, she has been drinking heavily for over a year and admits that she has not taken a shower or bath in a year because she was afraid of falling or slipping in the bath/shower. She quit alcohol by weaning down the amount of alcohol she was drinking over the and then had her last drink on Feb 27. She also complains of: Abdominal distention since 7-8 months ago. Sweaty hands make it difficult to use walker. Swelling of both LE, L worse than R. C/o numbness in hands and feet this past year. 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) Chronic back pain Chronic low back pain Elevated MCV Epistaxis Hypertension Malignant melanoma (2012) Osteopenia Poorly controlled mild persistent asthma Primary osteoarthritis Reactive gastropathy (05/10/10) Tubular adenoma of colon (05/10/10) Vitamin D deficiency (2018) Well controlled mild persistent asthma Surgical History (Updated 03/09/22 @ 11:23 by Abby Urbano MD) History of carpal tunnel surgery of right wrist (2008) History of hysterectomy (1991) History of melanoma excision (2012) History of tonsillectomy Status post arthroscopy of left knee (2009) Social History (Updated 03/09/22 @ 10:57 by Abby Urbano MD) Narrative: was drinking 2 - 16oz budwizers and 8 oz rum daily Smoking Status: Former smoker Second hand tobacco smoke exposure: No How often do you have a drink containing alcohol: monthly or less Alcohol type: beer Alcohol type details: last beer on feb 27 AUDIT-C Alcohol total score: 1 Non-prescribed substance use: denies use Caffeine: No service: No Meds Home Medications and Allergies Home Medications Medication Instructions Recorded Confirmed Type No Known Home Medications 02/25/22 03/09/22 History Home Medication Comments: She denies any home medications. Allergies Allergy/AdvReac Type Severity Reaction Status Date / Time No Known Drug Allergies Allergy Verified 02/25/22 01:49 Exam Narrative: Exam Narrative: General: No acute distress. Awake alert oriented x3. No asterixis. HEENT: Normocephalic atraumatic, pupils equally round and reactive to light and accommodation. Oropharynx clear. Mucous membranes are moist. No cervical lymphadenopathy, thyromegaly or carotid bruits. No JVD. Cardiovascular: Mildly tachycardic, regular. No murmurs, gallops, or rubs. Chest: No increased work of breathing. Clear to auscultation bilaterally. No crackles or wheezes. Abdomen: Bowel sounds present. Obese. Distended, possible fluid, nontender. Mild hepatomegaly, no masses. Extremities: 2+ pretibial pitting edema bilaterally, no cyanosis or clubbing. Left leg is in a velcro cast. Skin: No jaundice, no pallor, no rashes. Neuro: Grossly intact. No focal deficits. Const: Vital Signs, click to edit/add: Vital Signs - 24 hr 03/08/22 19:04 03/08/22 19:47 03/08/22 19:47 Temperature 97.5 F L Pulse Rate 97 Pulse Rate [Left P ulse Oximeter] Pulse Rate [Pulse Oximeter] 103 H 96 Respiratory Rate 16 Blood Pressure Blood Pressure [Le ft Arm] Blood Pressure [Le ft Upper Arm] 152/95 H 147/90 H Pulse Oximetry 96 96 96 Oxygen Delivery Me thod Room Air 03/08/22 20:00 03/08/22 20:02 03/08/22 20:15 Temperature Pulse Rate 96 104 H 101 H Pulse Rate [Left P ulse Oximeter] Pulse Rate [Pulse Oximeter] Respiratory Rate Blood Pressure 152/98 H Blood Pressure [Le ft Arm] Blood Pressure [Le ft Upper Arm] Pulse Oximetry 96 96 96 Oxygen Delivery Me thod 03/08/22 21:04 03/08/22 22:00 03/08/22 22:02 Temperature Pulse Rate 100 96 97 Pulse Rate [Left P ulse Oximeter] Pulse Rate [Pulse Oximeter] Respiratory Rate Blood Pressure 150/85 H Blood Pressure [Le ft Arm] Blood Pressure [Le ft Upper Arm] Pulse Oximetry 97 95 94 Oxygen Delivery Me thod 03/08/22 23:48 03/09/22 01:30 03/09/22 04:30 Temperature 98.0 F 98.8 F Pulse Rate Pulse Rate [Left P ulse Oximeter] Pulse Rate [Pulse Oximeter] 100 96 98 Respiratory Rate 16 16 14 Blood Pressure Blood Pressure [Le ft Arm] Blood Pressure [Le ft Upper Arm] 146/92 H 148/81 H 154/83 H Pulse Oximetry 94 94 93 [facility] 03/09/22 08:15 03/09/22 09:26 Temperature 98.9 F 98.5 F Pulse Rate Pulse Rate [Left P ulse Oximeter] 103 H Pulse Rate [Pulse Oximeter] 110 H Respiratory Rate 18 18 Blood Pressure Blood Pressure [Le ft Arm] 130/80 Blood Pressure [Le ft Upper Arm] 144/80 H Pulse Oximetry 92 93 Oxygen Delivery Me thod Room Air Room Air Hospitalist - H&P: Result Labs Labs: Short CBC 03/08/22 Range/Units 20:14 WBC 10.87 (4.50-11.00) K/uL Hgb 13.6 (12.0-16.0) gm/dL Hct 39.5 (33.0-51.0) % Plt Count 211 (140-440) K/uL BMP 03/08/22 20:14 Sodium 132 L Potassium 3.4 L Chloride 98 Carbon Dioxide 26 BUN 8 Creatinine 0.4 L Glucose 115 Calcium 9.3 Cardiac Enzymes 03/08/22 Range/Units 20:14 Troponin I < 0.01 L (0.01-0.04) ng/mL Liver Function 03/08/22 Range/Units 20:14 Total Bilirubin 1.6 H (0.1-1.5) mg/dL AST 222 H (12-35) U/L ALT 90 H (4-35) U/L Alkaline Phosphatase 195 H (40-150) U/L Albumin 4.3 (3.3-5.0) g/dL Urine 03/08/22 Range/Units 20:45 Urine Color [place] A (Yellow) Urine Appearance Cloudy A (Clear) Urine pH 6.5 (5.0-8.5) Ur Specific [place] 1.015 (1.000-1.030) Urine Protein Trace A (Negative) Urine Glucose (UA) Negative (Negative) Ordering Physician: Omkar Bansal M.D. Date of Service: 03/08/22 Procedure(s): XR ankle LT min 3V Accession Number(s): [id number] cc: Flora Parker M.D.; Omkar Bansal M.D.~ For Patients: As a result of the Cures Act, medical imaging exams and procedure reports are released immediately into your electronic medical record. You may view this report before your referring provider. If you have questions, please contact your health care provider. INDICATION: Fall. TECHNIQUE: Three views of left ankle. COMPARISON: None available. FINDINGS: Diffuse demineralization. Oblique fracture involving the fibular distal metadiaphysis with minimal lateral displacement. No dislocation or additional fracture identified. The ankle mortise appears not widened. Mild tibiotalar joint space narrowing and osteophytosis. Plantar calcaneal enthesophyte. Generalized soft tissue edema/thickening. IMPRESSION: Minimally displaced left distal fibular fracture. Dictated by John Calvert MD @ 03/08/2022 8:53:33 PM Dictated by: John Calvert MD @ 03/08/2022 20:53:37 (Electronically Signed) Ordering Physician: Omkar Bansal M.D. Date of Service: 03/08/22 Procedure(s): CT head/brain wo con Accession Number(s): [id number] cc: Flora Parker M.D.; Reister,Espitia J M.D.~ For Patients: As a result of the Cures Act, medical imaging exams and procedure reports are released immediately into your electronic medical record. You may view this report before your referring provider. If you have questions, please contact your health care provider. DATE: 03/08/2022. CLINICAL HISTORY: Fall. TECHNIQUE: Standard helical CT image acquisition of the brain was performed. COMPARISON: Head CT dated 11/26/2013. FINDINGS: There is no intracranial hemorrhage. No extra-axial collection, mass effect, or midline shift. Stephens-white matter differentiation is preserved. Mild generalized parenchymal volume loss. No acute hydrocephalus. No displaced calvarial fracture. The orbits are unremarkable. The paranasal sinuses are unremarkable. The mastoid air cells are unremarkable. The soft tissues are unremarkable. IMPRESSION: No CT evidence of acute intracranial abnormality or closed-head injury. Please note that all CT scans at this facility use dose modulation, iterative reconstruction, and/or weight-based dosing when appropriate to reduce radiation dose to as low as reasonably achievable. Dictated by Addi Jose MD @ 03/08/2022 9:31:02 PM (Electronically Signed) Ordering Physician: Omkar Bansal M.D. Date of Service: 03/08/22 Procedure(s): CT cervical spine wo con Accession Number(s): [id number] cc: Folra Parker M.D.; Omkar Bansal M.D.~ For Patients: As a result of the Cures Act, medical imaging exams and procedure reports are released immediately into your electronic medical record. You may view this report before your referring provider. If you have questions, please contact your health care provider. DATE: CLINICAL HISTORY: Trauma. TECHNIQUE: Helical CT acquisition of the cervical spine was performed. Coronal and sagittal reformations were performed and interpreted. COMPARISON: None available. FINDINGS: There is no evidence of acute displaced fracture or traumatic malalignment of the cervical spine. The facets are well aligned. Vertebral body heights are maintained without evidence of significant compression deformity. No evidence of significant trauma at the craniocervical junction. Mild cervical spondylosis. No evidence of severe spinal canal stenosis. The visualized prevertebral soft tissues are unremarkable. The visualized lung apices are unremarkable. IMPRESSION: No acute displaced fracture or traumatic malalignment of the cervical spine. Please note that all CT scans at this facility use dose modulation, iterative reconstruction, and/or weight-based dosing when appropriate to reduce radiation dose to as low as reasonably achievable. Dictated by Addi Jose MD @ 03/08/2022 9:33:25 PM (Electronically Signed) Ordering Physician: Omkar Bansal M.D. Date of Service: 03/08/22 Procedure(s): US venous LE LT Accession Number(s): [id number] cc: Flora Parker M.D.; Omkar Bansal M.D.~ For Patients: As a result of the Century Cures Act, medical imaging exams and procedure reports are released immediately into your electronic medical record. You may view this report before your referring provider. If you have questions, please contact your health care provider. INDICATION: Leg pain and swelling. TECHNIQUE: Ultrasound venous duplex lower left extremity. Compression venous exam was performed using stephens-scale, color Doppler, and spectral Doppler analysis. COMPARISON: None. FINDINGS: Deep veins: Sonographic imaging demonstrates the left common femoral, deep femoral, superficial femoral, popliteal, posterior tibial and the contralateral right common femoral veins to be fully compressible with normal color Doppler blood flow. Superficial veins: Greater saphenous vein is fully compressible. No popliteal cyst. IMPRESSION: Normal left lower extremity venous ultrasound, no sign of deep venous thrombosis. Dictated by Abhi Martin MD @ 03/09/2022 1:00:49 AM (Electronically Signed) 03/08/2022 8:22 p.m. EKG: Normal sinus rhythm. 100 beats per minute. Nonspecific T-wave abnormality. Prolonged QT. Assessment and Plan Assessment and plan (1) Closed left fibular fracture: Problem comment: Field C fibular fracture Status: Acute (2) Alcoholism, chronic: Status: Chronic (3) Bipolar disorder: Status: Chronic (4) Chronic alcoholic hepatitis: Status: Acute (5) Weakness: Status: Acute (6) Elevated LFTs: Status: Acute (7) Abdominal distention: Status: Acute (8) UTI (urinary tract infection): Status: Acute (9) Elevated MCV: Status: Acute Plan This is a 67-year-old female who has a closed left fibular fracture from a fall on February 25. I spoke with Trinidad from Ortho who noted that this patient will need an ORIF with fibular giovanni. Zainab does not have any cardiopulmonary history. I have reviewed her EKG from admission. Remote h/o tobacco use, poor nutritional status over the past year or more due to alcohol, poor functional capacity - will get preop CXR. If that is unremarkable, no further workup needed prior to surgery. NPO after midnight. According to her it has been about 10 days since she had her last drink of alcohol. Medical blood alcohol level was not elevated on admission and her U tox was negative for alcohol. Will hold off on CIWA protocol, but she may need this if she develops symptoms of alcohol withdrawal. Continue Rocephin for UTI. This was started in the emergency department. Patient has elevated transaminases cooler to earlier this month and abdominal distention, possible ascites. Will obtain an abdominal ultrasound.
--- NOTE | 2022-03-09 11:47 | CRLHL7_ITS ---
For Patients: As a result of the Cures Act, medical imaging exams and procedure reports are released immediately into your electronic medical record. You may view this report before your referring provider. If you have questions, please contact your health care provider. INDICATION: PREOP. REMOTE TOBACCO USE TECHNIQUE: Chest 1 view. COMPARISON: None. FINDINGS: Cardiovascular and mediastinum: Heart size and vasculature are normal in caliber and appearance. Mediastinum is within normal limits. Lungs and pleural space: Lungs are clear. No sign of infiltrate or mass. No sign of pleural effusion. No pneumothorax. Bones and soft tissues: No significant findings. IMPRESSION: Unremarkable chest. Dictated by: Abhi Pickens MD @ 03/09/2022 13:09:18 (Electronically Signed)
--- NOTE | 2022-03-09 12:08 | REH.OT ---
Orders received for PT/OT evaluation and treatment. Discussed patient with hospitalist. Patient may have surgery later today or tomorrow. Hospitalist states to wait on therapy until after surgery.
--- NOTE | 2022-03-09 14:50 | PC.SOCIAL ---
Discharge planning: Met with pt and dtr, Cathy, at dtr's request. Answered dtr's questions about an Advance Care Directive and provided requested forms. Dtr is aware of how to have this form witnessed or notarized for completion. Dtr is aware there may not be a notary available through the hospital today. Discussed with pt, her plans for discharge. Pt states she thinks she needs a assisted at discharge for short term rehab and requested [facility] is available. Pt is in the process of filling out an [facility] and would liek to be at the assisted for rehab if available. Discussed with pt and dtr that some nursing homes are unable to meet patient needs when there is a history of alcohol use. Pt states she will consider [facility] and [facility] where she receive the physical and occupational therapy and also the substance treatment needed at discharge. Answered dtrs questions about Medical Assistance. Pt states she has not applied for Medical Assistance even though she is qualified. Shared information on how waiver services would assist pt with expenses in her home when she returns to independent living after rehab placement. Dtr requested a [facility] Patient Assessment Coordinator be assigned to pt. Shared information with dtr regarding how to assist pt in requesting this servies through [facility]. At dtr's request, emailed her resources for Medical Assistance, Medical Assistance Application, [facility], [facility], senior care options in the [place] area, and information on the [facility] for rehab and substance treatment. Dtr is aware of how to contact clinical social worker with additional questions. egg worker to follow up as needed.
--- NOTE | 2022-03-09 16:00 | CRLHL7_ITS ---
For Patients: As a result of the Cures Act, medical imaging exams and procedure reports are released immediately into your electronic medical record. You may view this report before your referring provider. If you have questions, please contact your health care provider. INDICATION: elevated transaminases, abd distention, ?ascites, ETOH use. TECHNIQUE: Ultrasound abdomen limited. Sonographic images of the right upper quadrant were obtained using parks-scale and color Doppler images. COMPARISON: None. FINDINGS: Liver: Diffuse increased echogenicity, with questionable cirrhotic morphology. No discrete suspicious masses. No intrahepatic biliary dilatation. Gallbladder: Sludge with mild gallbladder wall thickening in an otherwise normal gallbladder. No pericholecystic fluid. Common bile duct: 4 mm. Pancreas: Unremarkable. Right kidney: Normal in size. Normal echotexture and cortex. No suspicious masses, shadowing stones, or hydronephrosis. Vasculature: Proximal abdominal aorta and IVC are unremarkable. IMPRESSION: 1. No acute process by ultrasound. 2. Questionable cirrhotic morphology of the liver with diffuse increased echogenicity which can be seen in underlying hepatocellular disease/hepatic steatosis. 3. Sludge with mild gallbladder wall thickening may be related to underlying hepatocellular disease given patient`s clinical history. Dictated by Abhi Martin MD @ 03/09/2022 6:13:07 PM (Electronically Signed)
--- NOTE | 2022-03-09 17:34 | PC.NURSE ---
Shift Summary: Patient pleasant and cooperative, at times anxious, easily calmed down once staff explain cares to her. Ceiling lift use to get to BSC. Poor appetite, refused lunch. Using call light appropriately. Able to turn self side to side in bed, staff assist with placing pillows behind back and between knees. Continues to have boot on left leg while in bed. States she has some pain but denies need for medication.
[2022-03-09] MEDS: SODIUM CHLORIDE 0.9 % (FLUSH) 10 ML SYRINGE 5 ML IVF (22:13)
[2022-03-09] MEDS: MELATONIN 3 MG TABLET PO (22:14)
[2022-03-09] MEDS: OXYCODONE 5 MG TABLET PO (22:14)
[2022-03-09] MEDS: cefTRIAXone 1 GM in 0.9 % SODIUM CHLORIDE Mini-bag 100 ML IVPB (22:14)
[2022-03-10] VITALS (27 sets, daily range): BP systolic 88–166; BP diastolic 52–111; PULSE 70–103; RESP 14–18; TEMP 36–37.1; O2SAT 85–96
[2022-03-10] MEDS: OXYCODONE 5 MG TABLET PO ×4 (03:14→23:37)
--- NOTE | 2022-03-10 05:23 | PC.NURSE ---
[id number]: patient up to BSC with 2 assist and ceiling lift, reports pain all over, states PRN medication helps see EMAR for meds given. CAM boot in place this shift. NPO at 0000.
[2022-03-10 06:45] LABS: Basophils Absolute Auto 0.04 K/uL (0.00-0.30); Basophils Percent Auto 0.4 % (0.0-3.0); Eosinophils Percent Auto 2.1 % (0.0-7.0); Hematocrit 36.7 % (33.0-51.0); Hemoglobin* 12.6 gm/dL (12.0-16.0); Immature Granulocytes Abs Auto 0.06 K/uL (0.00-0.30); Immature Granulocytes Pct Auto 0.6 %; Lymphocytes Percent Auto 9.7 % (20-44); Mean Corpuscular HGB Conc 34 gm/dL (32-36); Mean Corpuscular Hemoglobin 37 pg (26-34); Mean Corpuscular Volume 107 fL (80-100); Monocytes Percent Auto 9.9 % (0.0-11.0); Neutrophils Percent Auto 77.3 % (42.0-72.0); Platelet Count* 210 K/uL (140-440); Red Blood Count 3.44 m/uL (4.00-5.20); White Blood Count* 9.41 K/uL (4.50-11.00)
[2022-03-10 06:58] LABS: Slide Review Reflex No
[2022-03-10 07:01] LABS: Albumin* 3.6 g/dL (3.3-5.0)
[2022-03-10 07:02] LABS: Chloride* 102 mmol/L (96-114); INR 1.36 (0.91-1.10); Potassium* 3.1 mmol/L (3.6-5.1); Prothrombin Time 17.6 Seconds; Sodium* 136 mmol/L (135-149)
[2022-03-10 07:04] LABS: Aspartate Amino Transferase* 144 U/L (12-35); Bilirubin Total* 0.9 mg/dL (0.1-1.5); Carbon Dioxide* 27 mmol/L (20-32); Creatinine* 0.3 mg/dL (0.5-1.5); Est. Creatinine Clearance* 41.76; Estimated Glomerular Filt Rate 117 ml/min
[2022-03-10 07:05] LABS: Alanine Aminotransferase* 71 U/L (4-35); Alkaline Phosphatase* 163 U/L (40-150); Blood Urea Nitrogen* 3 mg/dL (7-30); Calcium* 9.1 mg/dL (8.4-10.6); Glucose* 88 mg/dL (60-115); Magnesium* 1.8 mg/dL (1.5-2.6); Total Protein* 6.7 g/dL (6.0-8.3)
--- NOTE | 2022-03-10 09:30 | PM.IMPN1 ---
Progress Note: A&P Assessment and plan (1) Closed left fibular fracture: Problem details: Rashida Mccall fibular fracture Status: Acute (2) UTI (urinary tract infection): Problem details: Specimen: [id number] COMP Collected: 03/08/22 Received: 03/08/22 Source: Urine CC Sp Descrip: Sub Dr: Omkar Bansal M.D. Other Dr: Procedure Result Site Urine Culture Final ML Organism 1 Escherichia coli Ur [place] Count >100,000 CFU/ml E coli STONE RX --------- --- Ampicillin 4 S Ampicillin/Sulbactam <=2 S Cefazolin <=4 S Cefepime <=1 S Cefoxitin <=4 S Ceftazidime <=1 S Ceftriaxone <=1 S Ciprofloxacin <=0.25 S Ertapenem <=0.5 S Gentamicin <=1 S Imipenem <=0.25 S Levofloxacin <=0.12 S Nitrofurantoin <=16 S Tobramycin <=1 S Trimethoprim/Sulfamethoxazole <=20 S Piperacillin/Tazobactam <=4 S Status: Acute Assessment and Plan: Day 3/3 ceftriaxone. (3) Weakness: Status: Acute (4) Elevated LFTs: Status: Acute (5) Chronic alcoholic hepatitis: Status: Acute (6) Abdominal distention: Problem details: Abdominal ultrasound done yesterday. No ascites commented on. Status: Acute (7) Alcoholism, chronic: Status: Chronic (8) Elevated MCV: Problem details: Suspect secondary to alcoholism. Hemoglobin is within normal limits for female. Status: Acute (9) Bipolar disorder: Status: Chronic (10) Sludge in gallbladder: Problem details: Asymptomatic Status: Acute (11) Hepatic steatosis: Problem details: Probable based on ultrasound, suspect secondary to alcohol use Status: Acute Plan This is a 67-year-old female who has a closed left fibular fracture from a fall on February 25. Planning ORIF with fibular giovanni today. She has evidence of hepatic steatosis verses of a cellular disease on ultrasound, history of chronic heavy alcohol use, mildly elevated INR and elevated LFTs. LFTs are improving. Suspect she has chronic alcoholic hepatitis that is now slowly improving after abstaining from alcohol about 2 weeks ago. At this point I do not think she needs any further inpatient workup and recommend she see GI as an outpatient for ongoing follow-up and treatment if needed. I also recommend she abstain ortez indefinitely. She has not had symptoms of withdrawal, and I suspect that she will not at this point and likely did begin abstaining from alcohol was 2 weeks ago. E coli UTI which is pansensitive and is been treated with Rocephin. She is on day 3/3 of this. Due to deconditioning from alcoholism, I suspect she will need rehab after surgery. Subjective Time Seen by Provider: 09:00 Date Seen: 03/10/22 Interval history: Zainab feels a bit better today. The pain medication is working well and she says she feels comfortable and relaxed. We discussed the results of her abdominal US and that she will need outpatient f/u with GI. We also discussed alcohol use and she expressed a desire to continue to abstain. Exam Narrative: Exam Narrative: General: No acute distress. Awake alert oriented x3. Cardiovascular: Mildly tachycardic, regular. No murmurs, gallops, or rubs. Chest: No increased work of breathing. Clear to auscultation bilaterally. No crackles or wheezes. Abdomen: Bowel sounds present. Obese. Distended, possible fluid, nontender. Mild hepatomegaly, no masses. Extremities: 2+ pretibial pitting edema bilaterally, no cyanosis or clubbing. Left leg is in a velcro cast. Const: Vital Signs, click to edit/add: Vital Signs - 24 hr 03/09/22 13:45 03/09/22 15:34 03/09/22 19:00 Temperature 98.5 F 97.8 F Pulse Rate [Left P ulse Oximeter] 99 98 Respiratory Rate 18 18 Blood Pressure [Le ft Arm] 132/78 130/76 Pulse Oximetry 92 92 92 Oxygen Delivery Me thod Room Air Room Air 03/09/22 23:00 03/09/22 23:00 03/10/22 03:00 Temperature 97.6 F 97.6 F Pulse Rate [Left P ulse Oximeter] 84 84 84 Respiratory Rate 18 18 18 Blood Pressure [Le ft Arm] 119/65 139/96 H Pulse Oximetry 90 90 Oxygen Delivery Me thod Room Air Room Air Labs Labs: Laboratory Results - last 24 hr 03/10/22 03/10/22 03/10/22 06:02 06:02 06:02 WBC 9.41 RBC 3.44 L Hgb 12.6 Hct 36.7 MCV 107 H MCH 37 H MCHC 34 RDW Coeff of Chivo 14.0 Plt Count 210 Neut % (Auto) 77.3 H Lymph % (Auto) 9.7 L Benson % (Auto) 9.9 Eos % (Auto) 2.1 Baso % (Auto) 0.4 Neut # (Auto) 7.30 H Lymph # (Auto) 0.90 Benson # (Auto) 0.90 Eos # (Auto) 0.20 Baso # (Auto) 0.04 INR 1.36 H Sodium 136 Potassium 3.1 L Chloride 102 Carbon Dioxide 27 BUN 3 L Creatinine 0.3 L Estimated Creat Clear 41.76 Estimated GFR 117 Glucose 88 Calcium 9.1 Magnesium 1.8 Total Bilirubin 0.9 AST 144 H ALT 71 H Alkaline Phosphatase 163 H Total Protein 6.7 Albumin 3.6 Ordering Physician: Abby Urbano M.D. Date of Service: 03/09/22 Procedure(s): XR chest 1V portable Accession Number(s): [id number] cc: Flora Parker M.D.; Abby Urbano M.D.~ For Patients: As a result of the Cures Act, medical imaging exams and procedure reports are released immediately into your electronic medical record. You may view this report before your referring provider. If you have questions, please contact your health care provider. INDICATION: PREOP. REMOTE TOBACCO USE TECHNIQUE: Chest 1 view. COMPARISON: None. FINDINGS: Cardiovascular and mediastinum: Heart size and vasculature are normal in caliber and appearance. Mediastinum is within normal limits. Lungs and pleural space: Lungs are clear. No sign of infiltrate or mass. No sign of pleural effusion. No pneumothorax. Bones and soft tissues: No significant findings. IMPRESSION: Unremarkable chest. Dictated by: Abhi Pickens MD @ 03/09/2022 13:09:18 (Electronically Signed) Ordering Physician: Abby Urbano M.D. Date of Service: 03/09/22 Procedure(s): US abdomen limited Accession Number(s): [id number] cc: Flora Parker M.D.; Abby Urbano M.D.~ For Patients: As a result of the Cures Act, medical imaging exams and procedure reports are released immediately into your electronic medical record. You may view this report before your referring provider. If you have questions, please contact your health care provider. INDICATION: elevated transaminases, abd distention, ?ascites, ETOH use. TECHNIQUE: Ultrasound abdomen limited. Sonographic images of the right upper quadrant were obtained using parks-scale and color Doppler images. COMPARISON: None. FINDINGS: Liver: Diffuse increased echogenicity, with questionable cirrhotic morphology. No discrete suspicious masses. No intrahepatic biliary dilatation. Gallbladder: Sludge with mild gallbladder wall thickening in an otherwise normal gallbladder. No pericholecystic fluid. Common bile duct: 4 mm. Pancreas: Unremarkable. Right kidney: Normal in size. Normal echotexture and cortex. No suspicious masses, shadowing stones, or hydronephrosis. Vasculature: Proximal abdominal aorta and IVC are unremarkable. IMPRESSION: 1. No acute process by ultrasound. 2. Questionable cirrhotic morphology of the liver with diffuse increased echogenicity which can be seen in underlying hepatocellular disease/hepatic steatosis. 3. Sludge with mild gallbladder wall thickening may be related to underlying hepatocellular disease given patient`s clinical history. Dictated by Abhi Martin MD @ 03/09/2022 6:13:07 PM (Electronically Signed)
[2022-03-10] MEDS: fentaNYL 100 MCG/2 ML inj IVP (10:25)
[2022-03-10] MEDS: MIDAZOLAM HCL 1 MG/ML inj IVP (10:25)
--- NOTE | 2022-03-10 10:46 | SUR.PREOP ---
TIME?OUT:?1047 PT/RN/MDA?VERIFICATION?OF?SURGICAL?SITE,?PROCEDURE,?AND?CONSENT OBTAINED?PRIOR?TO?INVASIVE?PROCEDURE.
--- NOTE | 2022-03-10 11:09 | W.PM.NB ---
Nerve Block Nerve Block Time Seen by Provider: 10:55 Date Seen: 03/10/22 Type of block requested by surgeon for post-operative analgesia: popliteal Side: left Time out performed: Yes Verification of patient name: Yes Verification of date of : Yes Site marking: site marked Name of person performing procedure: Micheal Continuous monitoring Was continuous monitoring of O2 sat, B/P, monitoring and evaluation advisor, recorded every 15 minutes?: Yes Procedure Checklist: sterile prep, needles and gloves Ultrasound guided. Images saved: Yes Medications given in 5ml increments after negative aspiration: Ropivicaine %: 0.5 mL: 20 Needle gauge: 22 Patient tolerated procedure well: Yes Additional comments: Needle noted adjacent to nerve Block Charges Block Charge (with Pro Fee): Sciatic Nerve Use of Ultrasound Machine for Block: Yes- US Guidance/pain block
--- NOTE | 2022-03-10 11:10 | W.PM.NB ---
Nerve Block Nerve Block Time Seen by Provider: 10:55 Date Seen: 03/10/22 Type of block requested by surgeon for post-operative analgesia: adductor canal Side: left Time out performed: Yes Verification of patient name: Yes Verification of date of : Yes Site marking: site marked Name of person performing procedure: Micheal Continuous monitoring Was continuous monitoring of O2 sat, B/P, transport coordinator, recorded every 15 minutes?: Yes Procedure Checklist: sterile prep, needles and gloves Ultrasound guided. Images saved: Yes Medications given in 5ml increments after negative aspiration: Ropivicaine %: 0.5 mL: 20 Needle gauge: 20 Patient tolerated procedure well: Yes Additional comments: Needle noted adjacent to nerve Block Charges Block Charge (with Pro Fee): Femoral Nerve Use of Ultrasound Machine for Block: Yes- US Guidance/pain block
--- NOTE | 2022-03-10 11:15 | CRLHL7_ITS ---
For Patients: As a result of the Cures Act, medical imaging exams and procedure reports are released immediately into your electronic medical record. You may view this report before your referring provider. If you have questions, please contact your health care provider. Indication: Left ankle ORIF Technique: Four fluoroscopic images of the left ankle. Fluoroscopic time 2 minutes 42.9 seconds. IMPRESSION: Fluoroscopic guidance for open reduction internal fixation of distal fibular fracture and syndesmotic fixation. Dictated by Abhi Ignacio MD @ 03/10/2022 2:27:45 PM (Electronically Signed)
[2022-03-10] MEDS: CEFAZOLIN 2 GM in 0.9 % SODIUM CHLORIDE Mini-bag 100 ML IVPB (11:40)
--- NOTE | 2022-03-10 12:14 | SUR.OPER ---
PATIENT QUESTIONS ANSWERED SATISFACTORILY PREOPERATIVELY.? PATIENT BROUGHT TO OR #2 PER CART AFTER ADMINISTRATION OF A BLOCK.? Patient positioned supine on OR #2 bed.? The perioperative?team supported arms bilaterally on arm boards.? Final approval of positioning by surgeon.?
--- NOTE | 2022-03-10 12:40 | W.ANESCHARGE ---
Anesthesia Charges Start Date/Time Anesthesia Start Date: 03/10/22 Anesthesia Start Time: 11:31 Stop Date/Time Anesthesia Stop Date: 03/10/22 Anesthesia Stop Time: 13:56 Summary Emergency: No
--- NOTE | 2022-03-10 13:32 | PM.ORPRC ---
Procedure Note Date of procedure: 03/10/22 Procedure: PREOPERATIVE DIAGNOSIS: Left ankle Field C fracture POSTOPERATIVE DIAGNOSIS: Left ankle Field C fracture NAME OF OPERATION: ORIF SURGEON: Jamison Jefferson MD SENIOR ANDROID SOFTWARE ENGINEER: GLORIA Redman ANESTHESIA: Spinal plus popliteal block ESTIMATED BLOOD LOSS: 0 mL COMPLICATIONS: None SPECIMENS: None DRAINS: None PREOPERATIVE ANTIBIOTICS: Ancef 2 g INDICATIONS: The patient is a 67-year-old who sustained a left ankle fracture. ORIF was recommended. The risks, benefits and expected outcomes were discussed in detail. These included but were not limited to: Infection, bleeding, injury to blood vessel or nerve, venous thromboembolism. All questions were answered to their satisfaction. Use of an server assistant was necessary throughout the case for patient positioning and safety, soft tissue retraction and closure. PROCEDURE: A popliteal block was placed by anesthesia. General anesthesia was administered. The lower extremity was prepped and draped in the usual sterile fashion. A percutaneous incision was made over the anterior and posterior aspect of the fibula, at the fracture site. A reduction clamp was placed. It was difficult to hold the reduction. Therefore, we placed a Rising Star over the medial aspect of the proximal fragment. Thumb pressure on the distal fragment nicely reduced the fracture. The guide pin was placed in the center of the distal fragment of the fibula, percutaneously. Its placement was confirmed with the image intensifier in multiple views. A stab incision was made around the guide pin. The opening Reamer was used. The guide pin was removed. The reduction finger was placed in the distal fragment. The distal fragment was held reduced. The reduction finger was taken across the fracture site. The longer, flexible guide pin was placed across the fracture, engaging the canal of the proximal fragment. The opening reamer was placed again, past the fracture site. The 3.2 and 4 point no mm reamer was used in the proximal fragment. We placed the Arthrex 3.8 mm x 180 mm intramedullary nail. The talons were deployed. We placed 3 screws in the distal fragment. The syndesmotic reduction clamp was placed. We placed 2 tight ropes across the syndesmosis. They were tensioned. The reduction clamp was removed. The syndesmosis remains nicely reduced. Implants were imaged in the AP, mortise and lateral views and were felt to be well placed with an excellent reduction. Medial mortise and syndesmotic relationships have been nicely restored. The medial buttons on each of the tight ropes appear to be within the tibia. However, with oblique imaging we were able to demonstrate that they are on the medial cortex of tibia. The wounds were irrigated with normal saline. The server assistant closed the skin with a 3-0 Vicryl and 4-0 Monocryl in a subcuticular fashion. Glue was used to seal the skin. The server assistant placed a dry dressing and short leg Aidan El splint. Sponge and needle counts were correct x 2. The patient tolerated the procedure well. There were no apparent complications. They were carefully transferred to the hospital bed and taken to the postanesthesia care unit in satisfactory condition. PLAN: The patient will be discharged to home. They will remain strict nonweightbearing on the lower extremity. They will continue to work on ice and elevation. They will follow up in the office in 2 weeks for a wound check and three views of the ankle out of the splint, prior to being seen, in preparation for a short-leg nonweightbearing cast. We are planning 6 weeks, nonweightbearing, 6 weeks weight-bearing as tolerates in the CAM walker to allow the syndesmosis to fully heal.
--- NOTE | 2022-03-10 13:56 | W.ANESCHARGE ---
Anesthesia Charges Start Date/Time Anesthesia Start Date: 03/10/22 Anesthesia Start Time: 11:31 Stop Date/Time Anesthesia Stop Date: 03/10/22 Anesthesia Stop Time: 13:56 Summary Emergency: No
--- NOTE | 2022-03-10 14:12 | SUR.PHASEI ---
Infused 50cc of LR in PACU. 900cc present on admission to PACU from OR.
--- NOTE | 2022-03-10 14:54 | PC.SOCIAL ---
Social work: Met with dtr while pt was in surgery. Pt has completed an [employer] Directive and dtr provided a copy to be included in pt's medical chart. Discussed prison options again with dtr. As there are no available beds in facilities in [place], their next choice is [facility] in [place]. Called pt's insurance ([phone]) and received a list of in-network assisted facilities. Following is a list of these facilities: [facility], [facility], [facility], [facility], [facility], [facility], [facility], [facility]. Provided this list to dtr. Dtr requested social services specialist contact [facility]. Called and faxed information to [facility]. Received a call back from Rebecca at [facility] stating they have a bed and can evaluate pt for this bed. Rebecca states that after she received all the information including PT/OT notes that will not be available until tomorrow, she can submit the information for prior authorization and likely will be able to accept pt if insurance gives prior authorization. Updated dtr who is pleased with this plan. workers compensation claims adjuster to follow up by faxing updated PT/OT notes to [facility] tomorrow morning when avaialble.
--- NOTE | 2022-03-10 15:54 | P.ORCN_ITS ---
History of Present Illness HPI Date Seen: 03/10/22 Requesting physician: Abby Urbano Chief complaint: Weakness Narrative: The patient is a 67-year-old community ambulator without assist. She fell, sustaining a left ankle fracture. She has never injured this ankle or had surgery on it previously. 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) Chronic back pain Chronic low back pain Elevated MCV Epistaxis Hypertension Malignant melanoma (2012) Osteopenia Poorly controlled mild persistent asthma Primary osteoarthritis Reactive gastropathy (05/10/10) Tubular adenoma of colon (05/10/10) Vitamin D deficiency (2017) Well controlled mild persistent asthma Surgical History (Updated 03/09/22 @ 11:23 by Abby Urbano MD) History of carpal tunnel surgery of right wrist (2008) History of hysterectomy (1991) History of melanoma excision (2012) History of tonsillectomy Status post arthroscopy of left knee (2009) Social History (Updated 03/09/22 @ 10:57 by Abby Urbano MD) Narrative: was drinking 2 - 16oz budwizers and 8 oz rum daily Smoking Status: Former smoker Second hand tobacco smoke exposure: No How often do you have a drink containing alcohol: monthly or less Alcohol type: beer Alcohol type details: last beer on feb 27 AUDIT-C Alcohol total score: 1 Non-prescribed substance use: denies use Caffeine: No service: No Meds Home Medications and Allergies Home Medications Medication Instructions Recorded Confirmed Type No Known Home Medications 02/25/22 03/09/22 History Allergies Allergy/AdvReac Type Severity Reaction Status Date / Time No Known Drug Allergies Allergy Verified 02/25/22 01:49 Ortho Exam Narrative Exam Narrative: The patient is alert and oriented x3, in no acute distress, they are able to converse in a normal speaking voice without obvious hearing loss and with nonlabored breathing. Patient is examined supine in the hospital bed. Left ankle is in a Cam walker. CMS to her toes is normal. Const Vital Signs, click to edit/add: Vital Signs - 24 hr 03/09/22 19:00 03/09/22 23:00 03/09/22 23:00 Temperature 97.8 F 97.6 F Pulse Rate Pulse Rate [Left Pulse Oximeter] 98 84 84 Respiratory Rate 18 18 18 Blood Pressure Blood Pressure [Left Arm] 130/76 119/65 Blood Pressure [Right Arm] Pulse Oximetry 92 90 Oxygen Delivery Method Room Air Room Air Oxygen Flow Rate 03/10/22 03:00 03/10/22 07:00 03/10/22 10:39 Temperature 97.6 F 98.2 F Pulse Rate 93 Pulse Rate [Left Pulse Oximeter] 84 98 Respiratory Rate 18 16 16 Blood Pressure 109/73 Blood Pressure [Left Arm] 139/96 H 123/75 Blood Pressure [Right Arm] Pulse Oximetry 90 92 92 Oxygen Delivery Method Room Air Room Air Nasal Cannula Oxygen Flow Rate 3 03/10/22 10:45 03/10/22 10:48 03/10/22 10:50 Temperature Pulse Rate 96 96 103 H Pulse Rate [Left Pulse Oximeter] Respiratory Rate 16 14 16 Blood Pressure 88/52 L 104/64 113/56 L Blood Pressure [Left Arm] Blood Pressure [Right Arm] Pulse Oximetry 96 95 92 Oxygen Delivery Method Nasal Cannula Nasal Cannula Nasal Cannula Oxygen Flow Rate 3 3 3 03/10/22 10:55 03/10/22 11:00 03/10/22 13:55 Temperature 98.7 F Pulse Rate 100 93 90 Pulse Rate [Left Pulse Oximeter] Respiratory Rate 16 14 18 Blood Pressure 92/71 98/67 128/111 H Blood Pressure [Left Arm] Blood Pressure [Right Arm] Pulse Oximetry 92 93 85 L Oxygen Delivery Method Nasal Cannula Nasal Cannula Room Air Oxygen Flow Rate 3 3 03/10/22 14:00 03/10/22 14:05 03/10/22 14:10 Temperature Pulse Rate 90 93 96 Pulse Rate [Left Pulse Oximeter] Respiratory Rate 18 18 18 Blood Pressure 118/85 135/99 H 152/103 H Blood Pressure [Left Arm] Blood Pressure [Right Arm] Pulse Oximetry 94 91 92 Oxygen Delivery Method Nasal Cannula Nasal Cannula Nasal Cannula Oxygen Flow Rate 3 3 3 03/10/22 14:15 03/10/22 14:20 03/10/22 14:34 Temperature 96.8 F L Pulse Rate 92 91 93 Pulse Rate [Left Pulse Oximeter] Respiratory Rate 18 18 16 Blood Pressure 148/99 H 135/95 H Blood Pressure [Left Arm] 166/96 H Blood Pressure [Right Arm] Pulse Oximetry 91 91 Oxygen Delivery Method Nasal Cannula Nasal Cannula Nasal Cannula Oxygen Flow Rate 3 3 3 03/10/22 14:45 03/10/22 15:05 03/10/22 15:00 Temperature 97.5 F L 97.3 F L 97.3 F L Pulse Rate Pulse Rate [Left Pulse Oximeter] 92 92 92 Respiratory Rate 18 16 16 Blood Pressure Blood Pressure [Left Arm] Blood Pressure [Right Arm] 121/89 137/79 137/79 Pulse Oximetry 92 94 94 Oxygen Delivery Method Nasal Cannula Nasal Cannula Nasal Cannula Oxygen Flow Rate 1.5 1.5 1.5 03/10/22 15:15 03/10/22 15:30 Temperature 97.5 F L 97.4 F L Pulse Rate Pulse Rate [Left Pulse Oximeter] 89 84 Respiratory Rate 18 18 Blood Pressure Blood Pressure [Left Arm] Blood Pressure [Right Arm] 139/81 126/81 Pulse Oximetry 94 95 Oxygen Delivery Method Nasal Cannula Nasal Cannula Oxygen Flow Rate 1.5 1.5 Results Labs Labs: Laboratory Results - last 48 hr 03/08/22 03/08/22 03/08/22 20:14 20:14 20:14 WBC 10.87 RBC 3.70 L Hgb 13.6 Hct 39.5 MCV 107 H MCH 37 H MCHC 34 RDW Coeff of [place] 13.9 Plt Count 211 Neut % (Auto) 80.5 H Lymph % (Auto) 7.5 L [place] % (Auto) 9.7 Eos % (Auto) 0.6 Baso % (Auto) 0.6 Neut # (Auto) 8.80 H Lymph # (Auto) 0.80 L [place] # (Auto) 1.10 H Eos # (Auto) 0.07 Baso # (Auto) 0.06 INR Sodium 132 L Potassium 3.4 L Chloride 98 Carbon Dioxide 26 BUN 8 Creatinine 0.4 L Estimated Creat Clear 41.76 Estimated GFR 109 Glucose 115 Lactate 0.9 Calcium 9.3 Magnesium Total Bilirubin 1.6 H AST 222 H ALT 90 H Alkaline Phosphatase 195 H Troponin I < 0.01 L Total Protein 7.6 Albumin 4.3 Urine Color Urine Appearance Urine pH Ur Specific [place] Urine Protein Urine Glucose (UA) Urine Ketones Urine Blood Urine Nitrite Urine Bilirubin Urine Urobilinogen Ur Leukocyte Esterase Urine RBC Urine WBC Ur Squamous Epith Cells Urine Bacteria Urine Opiates Screen Ur Oxycodone Screen Urine Methadone Screen Ur Propoxyphene Screen Ur Barbiturates Screen U Tricyclic Antidepress Ur Phencyclidine Scrn Ur Amphetamines Screen U Methamphetamines Scrn U Benzodiazepines Scrn Urine Cocaine Screen U Marijuana (THC) Screen Ur Drug Screen Comment Ethyl Alcohol < 0.01 L SARS-CoV-2 (PCR) Influenza Type A (PCR) Influenza Type B (PCR) RSV (PCR) 03/08/22 03/08/22 03/09/22 20:45 20:45 01:10 WBC RBC Hgb Hct MCV MCH MCHC RDW Coeff of [place] Plt Count Neut % (Auto) Lymph % (Auto) [place] % (Auto) Eos % (Auto) Baso % (Auto) Neut # (Auto) Lymph # (Auto) [place] # (Auto) Eos # (Auto) Baso # (Auto) INR Sodium Potassium Chloride Carbon Dioxide BUN Creatinine Estimated Creat Clear Estimated GFR Glucose Lactate Calcium Magnesium Total Bilirubin AST ALT Alkaline Phosphatase Troponin I Total Protein Albumin Urine Color [place] A Urine Appearance Cloudy A Urine pH 6.5 Ur Specific [place] 1.015 Urine Protein Trace A Urine Glucose (UA) Negative Urine Ketones 1+ A Urine Blood Negative Urine Nitrite Positive A Urine Bilirubin 1+ A Urine Urobilinogen >=8.0 Ur Leukocyte Esterase 1+ A Urine RBC 0-2 Urine WBC 10-25 A Ur Squamous Epith Cells Few Urine Bacteria Many A Urine Opiates Screen Negative Ur Oxycodone Screen Negative Urine Methadone Screen Negative Ur Propoxyphene Screen Negative Ur Barbiturates Screen Negative U Tricyclic Antidepress Negative Ur Phencyclidine Scrn Negative Ur Amphetamines Screen Negative U Methamphetamines Scrn Negative U Benzodiazepines Scrn Negative Urine Cocaine Screen Negative U Marijuana (THC) Screen Negative Ur Drug Screen Comment See Note Ethyl Alcohol SARS-CoV-2 (PCR) Negative SARS-CoV-2 Influenza Type A (PCR) Negative PCR FLU A Influenza Type B (PCR) Negative PCR FLU B RSV (PCR) Negative PCR RSV 03/10/22 03/10/22 03/10/22 06:02 06:02 06:02 WBC 9.41 RBC 3.44 L Hgb 12.6 Hct 36.7 MCV 107 H MCH 37 H MCHC 34 RDW Coeff of [place] 14.0 Plt Count 210 Neut % (Auto) 77.3 H Lymph % (Auto) 9.7 L [place] % (Auto) 9.9 Eos % (Auto) 2.1 Baso % (Auto) 0.4 Neut # (Auto) 7.30 H Lymph # (Auto) 0.90 [place] # (Auto) 0.90 Eos # (Auto) 0.20 Baso # (Auto) 0.04 INR 1.36 H Sodium 136 Potassium 3.1 L Chloride 102 Carbon Dioxide 27 BUN 3 L Creatinine 0.3 L Estimated Creat Clear 41.76 Estimated GFR 117 Glucose 88 Lactate Calcium 9.1 Magnesium 1.8 Total Bilirubin 0.9 AST 144 H ALT 71 H Alkaline Phosphatase 163 H Troponin I Total Protein 6.7 Albumin 3.6 Urine Color Urine Appearance Urine pH Ur Specific [place] Urine Protein Urine Glucose (UA) Urine Ketones Urine Blood Urine Nitrite Urine Bilirubin Urine Urobilinogen Ur Leukocyte Esterase Urine RBC Urine WBC Ur Squamous Epith Cells Urine Bacteria Urine Opiates Screen Ur Oxycodone Screen Urine Methadone Screen Ur Propoxyphene Screen Ur Barbiturates Screen U Tricyclic Antidepress Ur Phencyclidine Scrn Ur Amphetamines Screen U Methamphetamines Scrn U Benzodiazepines Scrn Urine Cocaine Screen U Marijuana (THC) Screen Ur Drug Screen Comment Ethyl Alcohol SARS-CoV-2 (PCR) Influenza Type A (PCR) Influenza Type B (PCR) RSV (PCR) Diagnostic results Additional Comments: Three views of the left ankle show a Field C fracture. There is no ankle joint arthritis. Assessment and Plan Assessment and plan (1) Closed left fibular fracture: Problem comment: Field C fibular fracture Status: Acute Total time spent: Total time spent is greater than 50% in coordination of care (as documented) at patient's floor/unit and/or counseling patient: (2) UTI (urinary tract infection): Problem comment: Specimen: [id number] COMP Collected: 03/08/22 Received: Source: Urine CC Sp Descrip: Sub Dr: Omkar Bansal M.D. Other Dr: Procedure Result Site Urine Culture Final ML Organism 1 Escherichia coli Ur Reliance Count >100,000 CFU/ml E coli STONE RX --------- --- Ampicillin 4 S Ampicillin/Sulbactam <=2 S Cefazolin <=4 S Cefepime <=1 S Cefoxitin <=4 S Ceftazidime <=1 S Ceftriaxone <=1 S Ciprofloxacin <=0.25 S Ertapenem <=0.5 S Gentamicin <=1 S Imipenem <=0.25 S Levofloxacin <=0.12 S Nitrofurantoin <=16 S Tobramycin <=1 S Trimethoprim/Sulfamethoxazole <=20 S Piperacillin/Tazobactam <=4 S Status: Acute Total time spent: Total time spent is greater than 50% in coordination of care (as documented) at patient's floor/unit and/or counseling patient: (3) Weakness: Status: Acute Total time spent: Total time spent is greater than 50% in coordination of care (as documented) at patient's floor/unit and/or counseling patient: (4) Elevated LFTs: Status: Acute Total time spent: Total time spent is greater than 50% in coordination of care (as documented) at patient's floor/unit and/or counseling patient: (5) Chronic alcoholic hepatitis: Status: Acute Total time spent: Total time spent is greater than 50% in coordination of care (as documented) at patient's floor/unit and/or counseling patient: (6) Abdominal distention: Problem comment: Abdominal ultrasound done yesterday. No ascites commented on. Status: Acute Total time spent: Total time spent is greater than 50% in coordination of care (as documented) at patient's floor/unit and/or counseling patient: (7) Alcoholism, chronic: Status: Chronic Total time spent: Total time spent is greater than 50% in coordination of care (as documented) at patient's floor/unit and/or counseling patient: (8) Elevated MCV: Problem comment: Suspect secondary to alcoholism. Hemoglobin is within normal limits for female. Status: Acute Total time spent: Total time spent is greater than 50% in coordination of care (as documented) at patient's floor/unit and/or counseling patient: (9) Bipolar disorder: Status: Chronic Total time spent: Total time spent is greater than 50% in coordination of care (as documented) at patient's floor/unit and/or counseling patient: (10) Sludge in gallbladder: Problem comment: Asymptomatic Status: Acute Total time spent: Total time spent is greater than 50% in coordination of care (as documented) at patient's floor/unit and/or counseling patient: (11) Hepatic steatosis: Problem comment: Probable based on ultrasound, suspect secondary to alcohol use Status: Acute Total time spent: Total time spent is greater than 50% in coordination of care (as documented) at patient's floor/unit and/or counseling patient: Plan Assessment: Left ankle Field C fracture Plan: I told Zainab that her injury is best treated with ORIF. She has been medically cleared for surgery. Therefore, we will plan to take her to the operating room today.
[2022-03-10] MEDS: POTASSIUM CHLORIDE 10 MEQ CAPSULE ER 20 MEQ PO (18:02)
--- NOTE | 2022-03-10 18:49 | PC.NURSE ---
Shift Summary: Patient returned from surgery @ 1434, vitals stable and WNL. C/o some left leg pain, managed with PRN oxycodone. Tolerating fluids, only requesting broth and crackers for dinner. Denies nausea or itching. Continues to need ceiling lift to BSC. Requiring 1.5L/NC following surgery to maintain o2 sats >90%.
[2022-03-10] MEDS: SENNOSIDES 1 TAB TABLET 2 TAB PO (20:28)
[2022-03-10] MEDS: SODIUM CHLORIDE 0.9 % (FLUSH) 10 ML SYRINGE IVF (20:29)
[2022-03-10] MEDS: MELATONIN 3 MG TABLET PO (22:03)
[2022-03-10] MEDS: cefTRIAXone 1 GM in 0.9 % SODIUM CHLORIDE Mini-bag 100 ML IVPB (23:28)
[2022-03-11 04:40] VITALS: BP 121/75; PULSE 91; RESP 16; TEMP 36.9; O2SAT 93
[2022-03-11] MEDS: OXYCODONE 5 MG TABLET PO ×3 (04:57→14:47)
[2022-03-11 07:00] VITALS: BP 114/68; PULSE 93; RESP 16; TEMP 36.9; O2SAT 94
--- NOTE | 2022-03-11 07:25 | PC.NURSE ---
End of shift status [id number] Pt alert and oriented. Receiving PRN oxy for pain. IV rocephin given. Using IS up to 1000. Dressing intact to left leg. Up with assist of 2 and ceiling lift to commode. BP stable. Remains on 1.5L of supplemental oxygen. Intermittent resting between cares.
[2022-03-11] MEDS: SENNOSIDES 1 TAB TABLET 2 TAB PO (09:13)
[2022-03-11] MEDS: FOLIC ACID 1 MG TABLET PO (09:13)
[2022-03-11] MEDS: POTASSIUM CHLORIDE 10 MEQ CAPSULE ER 20 MEQ PO ×2 (09:13→17:51)
[2022-03-11] MEDS: THIAMINE 100 MG TABLET PO (09:13)
[2022-03-11] MEDS: MULTIVITAMIN/MINERALS 1 TABLET 1 TAB PO (09:13)
[2022-03-11 11:00] VITALS: BP 124/77; PULSE 94; RESP 16; TEMP 36.8; O2SAT 94
--- NOTE | 2022-03-11 12:03 | PC.SOCIAL ---
Diacharge planning: Faxed updated MD, medications, PT and OT notes to [facility] for evaluation for admission and prior authorization form insurance. road worker to follow up as needed.
[2022-03-11 15:30] VITALS: BP 131/71; PULSE 92; RESP 18; TEMP 36.7; O2SAT 94
--- NOTE | 2022-03-11 15:33 | PC.NURSE ---
PATIENT ALERT AND ORIENTED, COOPERATIVE, REQUIRING TOTAL CARES, CONTINENT OF BOWEL AND BLADDER, UP WITH CEILING LIFT, PATIENT HAD SHIMMIED HERSELF OUT OF CEILING LIFT SLING WHILE SITTING IN CHAIR ATTEMPTED TO STAND PATIENT WITH THE ASSIST OF TWO WITH WALKER AND BELT, PATIENT WAS NOT ABLE TO TOLERATE, RIGHT LEG TOO WEAK, IT JUST GAVE OUT, TO HOLD WEIGHT, UNABLE TO HOLD SELF UP WITH ARMS, RATING PAIN IN LEFT ANKLE/LEG 6-8 OUT OF 10 BEING MANAGED WITH PRN OXYCODONE, PATIENT STATED 6 IS COMFORTABLE FOR ME, SOFT CAST TO LEFT LEG REMAINS INTACT, PEDAL PULSES PRESENT, ATTEMPTED TO WEAN OFF OXYGEN, WAS ABLE TO GET PATIENT TO RA BUT STATS WOULD DROP TO 88-89% REMAINS ON .5L O2 VIA NC WITH SATS 90% AND GREATER, IS TO 1000, DTR PRESENT THIS AFTERNOON VERY SUPPORTIVE, TOLERATING REGULAR DIET, PATIENT STATED THIS MORNING THIS IS THE MOST I HAVE ATE IN A VERY LONG TIME, EATING 100% OF BREAKFAST.
--- NOTE | 2022-03-11 16:38 | PM.IMPN1 ---
Progress Note: A&P Assessment and plan (1) Closed left fibular fracture: Problem details: Field C fibular fracture, postop day 2 ORIF. on Xarelto for VTE prophylaxis. Pt is really immobile and will be for quite awhile. Status: Acute (2) UTI (urinary tract infection): Problem details: Completed Rocephin while inpatient. Status: Acute (3) Chronic alcoholic hepatitis: Status: Acute (4) Alcoholism, chronic: Status: Chronic (5) Elevated MCV: Problem details: Suspect secondary to alcoholism. Hemoglobin is within normal limits for female. Status: Acute (6) Bipolar disorder: Status: Chronic (7) Sludge in gallbladder: Problem details: Asymptomatic Status: Acute Subjective Date Seen: 03/11/22 Interval history: Daily Progress Note - Hospital Medicine Day #: 3 POST OP DAY 1 DIAGNOSIS:? Left ankle Field C fracture NAME OF OPERATION:? ORIF CC: Patient is status post an ORIF of her left ankle. Postop day 1. She continues to improve. She is on minimal oxygen. She is not moving well at all. She has to be nonweightbearing on the right extremity. Deconditioned from chronic alcoholism. She has a supportive family. We are looking for skilled rehab currently. OVERNIGHT UPDATES FROM STAFF & MED, LAB, IMAGING UPDATES No new labs today Vitals are all stable. She is 94% on half a L. She is afebrile. She is getting oxycodone for pain. Potassium replacement. We are also replacing her folic acid and thiamin secondary to her chronic alcoholism. Review of Systems: See subjective Cardiac: No new chest pain/pressure/palpitations. Respiratory: no new dyspnea. GI: No abdominal bloating Objective: Vitals: see above Lungs: Clear. Cardiac: S1S2. Prosper wrap splint on the left lower extremity. Pedal pulses are intact. Neurovascularly intact. Disposition/Potential discharge - Will need care home rehab secondary to nonweightbearing status. Total time is 35 minutes with greater than 50% spent in counseling and coordination of care. Exam Const: Vital Signs, click to edit/add: Vital Signs - 24 hr 03/10/22 17:30 03/10/22 19:13 03/10/22 19:30 Temperature 97.6 F 98.1 F Pulse Rate [Left D orsalis Pedis] Pulse Rate [Left P ulse Oximeter] 97 70 93 Respiratory Rate 18 18 Blood Pressure [Le ft Arm] Blood Pressure [Ri ght Arm] 114/77 123/74 125/72 Pulse Oximetry 91 92 Oxygen Delivery Me thod Nasal Cannula Nasal Cannula Nasal Cannula Oxygen Flow Rate 1.5 1.5 1.5 03/10/22 20:30 03/10/22 20:30 03/10/22 23:00 Temperature 98.1 F 98.4 F Pulse Rate [Left D orsalis Pedis] Pulse Rate [Left P ulse Oximeter] 93 93 88 Respiratory Rate 18 18 18 Blood Pressure [Le ft Arm] Blood Pressure [Ri ght Arm] 109/69 109/69 127/81 Pulse Oximetry 93 93 93 Oxygen Delivery Me thod Nasal Cannula Nasal Cannula Nasal Cannula Oxygen Flow Rate 1.5 1.5 1.5 03/11/22 04:40 03/10/22 23:00 03/11/22 07:00 Temperature 98.5 F 98.5 F Pulse Rate [Left D orsalis Pedis] Pulse Rate [Left P ulse Oximeter] 91 88 93 Respiratory Rate 16 18 16 Blood Pressure [Le ft Arm] Blood Pressure [Ri ght Arm] 121/75 114/68 Pulse Oximetry 93 94 Oxygen Delivery Me thod Nasal Cannula Nasal Cannula Oxygen Flow Rate 1.5 1.5 03/11/22 11:00 03/11/22 15:30 Temperature 98.2 F 98.1 F Pulse Rate [Left D orsalis Pedis] 92 Pulse Rate [Left P ulse Oximeter] 94 Respiratory Rate 16 18 Blood Pressure [Le ft Arm] 124/77 Blood Pressure [Ri ght Arm] 131/71 Pulse Oximetry 94 94 Oxygen Delivery Me thod Nasal Cannula Nasal Cannula Oxygen Flow Rate 1.5 0.5
[2022-03-11] MEDS: RIVAROXABAN 10 MG TABLET PO (17:52)
[2022-03-11] MEDS: MELATONIN 3 MG TABLET PO (20:22)
[2022-03-11 20:58] LABS: Folate, RBC 147 ng/mL (>=366); Hematocrit (client supplied) 35.2 %
[2022-03-11 23:00] VITALS: BP 126/85; PULSE 93; PULSE 95; RESP 16; TEMP 36.9; O2SAT 93
--- NOTE | 2022-03-11 23:42 | PC.NURSE ---
Shift [id number]- Patient declines pain medications this shift. Left leg is elevated on pillows. She is up with ceiling lift to [facility], assist of 2. She is turned and repositioned with pillows for offloading. Daughter at bedside and supportive. IV discontinued accidently during transfer, ok to leave out.
[2022-03-12] MEDS: OXYCODONE 5 MG TABLET PO (04:33)
[2022-03-12 04:45] VITALS: BP 157/98; PULSE 100; PULSE 102; RESP 16; TEMP 36.8; O2SAT 91
[2022-03-12 06:56] LABS: HCO3 VBG 27 mmol/L (21-28); Ionized Calcium* 1.24 mmol/L (1.11-1.30); PCO2 VBG 43 mmHG (40-50); PO2 VBG 83.2 mmHG (25-47); pH VBG 7.414 (7.32-7.43)
[2022-03-12 07:00] VITALS: BP 144/82; PULSE 99; RESP 18; TEMP 36.8; O2SAT 90
[2022-03-12 07:17] LABS: Albumin* 3.5 g/dL (3.3-5.0); Chloride* 102 mmol/L (96-114); Sodium* 134 mmol/L (135-149)
[2022-03-12 07:18] LABS: Potassium* 4.1 mmol/L (3.6-5.1)
[2022-03-12 07:20] LABS: Alanine Aminotransferase* 70 U/L (4-35); Alkaline Phosphatase* 152 U/L (40-150); Aspartate Amino Transferase* 142 U/L (12-35); Blood Urea Nitrogen* 5 mg/dL (7-30); Carbon Dioxide* 25 mmol/L (20-32); Creatinine* 0.3 mg/dL (0.5-1.5); Est. Creatinine Clearance* 41.76; Estimated Glomerular Filt Rate 117 ml/min; Total Protein* 6.5 g/dL (6.0-8.3)
[2022-03-12 07:21] LABS: Glucose* 98 mg/dL (60-115); Magnesium* 1.7 mg/dL (1.5-2.6)
[2022-03-12 07:23] LABS: C Reactive Protein* 4.4 mg/dL (0.5-1.0)
--- NOTE | 2022-03-12 07:43 | PC.NURSE ---
Patient alert and oriented x3, Pt's leg cast CDI. Pt reports pain 8/10 throughout body and in left leg. Pain managed with PRN oxycodone. Patient denies N/V, SOB or chest pain. Pt reports urge to have a BM, Pt was put on commode, was unable to have a BM, but did void. Pt tolerating regular diet but reports poor appetite. Pt transfers with ceiling lift.
[2022-03-12] MEDS: THIAMINE 100 MG TABLET PO (09:29)
[2022-03-12] MEDS: POTASSIUM CHLORIDE 10 MEQ CAPSULE ER 20 MEQ PO (09:29)
[2022-03-12] MEDS: SENNOSIDES 1 TAB TABLET 2 TAB PO (09:29)
[2022-03-12] MEDS: FOLIC ACID 1 MG TABLET PO (09:30)
[2022-03-12] MEDS: MULTIVITAMIN/MINERALS 1 TABLET 1 TAB PO (09:30)
[2022-03-12] MEDS: SODIUM CHLORIDE 0.9 % (FLUSH) 10 ML SYRINGE IVF (09:30)
--- NOTE | 2022-03-12 09:34 | PM.IMPN1 ---
Progress Note: A&P Assessment and plan (1) Closed left fibular fracture: Problem details: Field C fibular fracture, postop day 2 ORIF. on Xarelto for VTE prophylaxis. Pt is really immobile and will be for quite awhile. Status: Acute (2) Hepatic steatosis: Problem details: Probable based on ultrasound, suspect secondary to alcohol use Status: Acute (3) Chronic alcoholic hepatitis: Status: Acute (4) Alcoholism, chronic: Status: Chronic (5) Elevated LFTs: Status: Acute (6) Abdominal distention: Problem details: Abdominal ultrasound done yesterday. No ascites commented on. Status: Acute (7) Sludge in gallbladder: Problem details: Asymptomatic Status: Acute (8) UTI (urinary tract infection): Problem details: Completed Rocephin while inpatient. Status: Acute (9) Elevated MCV: Problem details: Suspect secondary to alcoholism. Hemoglobin is within normal limits for female. Status: Acute (10) Bipolar disorder: Status: Chronic (11) Weakness: Status: Acute Plan Dispo-anticipated discharge to SNF early next week Subjective Date Seen: 03/12/22 Interval history: patient sitting in chair eating breakfast pain 08/21; getting morning meds now daughter to come later this afternoon no acute events overnight on 0.5 liters supplemental oxygen Exam Narrative: Exam Narrative: Gen: NAD HEENT: NCAT EOMI MMM CV: Tachycardic; s1 s2 LCTAB Abd: Soft, nt, nd Neuro: Alert, oriented; nonfocal screening exam Const: Vital Signs, click to edit/add: Vital Signs - 24 hr 03/11/22 11:00 03/11/22 15:30 03/11/22 23:00 Temperature 98.2 F 98.1 F 98.5 F Pulse Rate [Left D orsalis Pedis] 92 93 Pulse Rate [Left P ulse Oximeter] 94 95 Respiratory Rate 16 18 16 Blood Pressure [Le ft Arm] 124/77 Blood Pressure [Ri ght Arm] 131/71 126/85 Pulse Oximetry 94 94 93 Oxygen Delivery Me thod Nasal Cannula Nasal Cannula Nasal Cannula Oxygen Flow Rate 1.5 0.5 0.5 03/12/22 04:45 Temperature 98.3 F Pulse Rate [Left D orsalis Pedis] 100 Pulse Rate [Left P ulse Oximeter] 102 H Respiratory Rate 16 Blood Pressure [Le ft Arm] Blood Pressure [Ri ght Arm] 157/98 H Pulse Oximetry 91 Oxygen Delivery Me thod Nasal Cannula Oxygen Flow Rate 0.5 Labs Labs: Laboratory Results - last 24 hr 03/08/22 03/12/22 03/12/22 23:15 05:40 05:40 POC Hct 35.2 VBG pH 7.414 VBG pCO2 43 VBG pO2 83.2 H VBG HCO3 27 Sodium 134 L Potassium 4.1 Chloride 102 Carbon Dioxide 25 BUN 5 L Creatinine 0.3 L Estimated Creat Clear 41.76 Estimated GFR 117 Glucose 98 Calcium 9.0 Ionized Calcium Brynn 1.24 Magnesium 1.7 Total Bilirubin 1.0 AST 142 H ALT 70 H Alkaline Phosphatase 152 H C-Reactive Protein 4.4 H Total Protein 6.5 Albumin 3.5 RBC Folate Request 147 L
--- NOTE | 2022-03-12 09:54 | PC.SOCIAL ---
Discharge plan: Called [facility] and spoke with Rebecca in admitting. Rebecca confirmed that prior authorization was submitted on 03/11/22. If prior authorization is obtained before 2:00pm today, pt could be discharged to their facility today. Otherwise, pt would not be able to be admitted prior to Tuesday (pending prior authorization). Updated Rebecca on current use of ceiling lift for pt safety. Rebecca states they have a [place] list that could be used if needed. Facility will call hospital social worekr when prior authorization is obtained to make further dischareg plans. beater worker helper to follow up as needed.
--- NOTE | 2022-03-12 10:50 | PM.DS1 ---
DS: Providers Provider Date Seen: 03/12/22 Date of admission: 03/09/22 11:48 Primary care physician: Flora Parker MD Admitting Clinician: Cierra Kelly MD Consults: 03/10/22 14:34 Consult to Physical Therapy [CONS] Routine Comment: Reason(s) for PT Consult:: Evaluate and Treat Any Restrictions?:: Non Wt Bearing Comment: Gait training. Eval for knee scooter. Nonweightbearing, left lower extremity. Attending Physician on discharge: Kelechi Waddell MD Date of Discharge: 03/12/22 DS: Diagnosis Discharge Diagnosis (1) Closed left fibular fracture: Status: Acute Problem details: Field C fibular fracture, s/p ORIF. (2) Hepatic steatosis: Status: Acute Problem details: Probable based on ultrasound, suspect secondary to alcohol use (3) Sludge in gallbladder: Status: Acute Problem details: Asymptomatic (4) UTI (urinary tract infection): Status: Acute Problem details: Completed Rocephin while inpatient. (5) Elevated MCV: Status: Acute Problem details: Suspect secondary to alcoholism. Hemoglobin is within normal limits for female. (6) Abdominal distention: Status: Acute Problem details: Abdominal ultrasound done yesterday. No ascites commented on. (7) Weakness: Status: Acute (8) Elevated LFTs: Status: Acute (9) Chronic alcoholic hepatitis: Status: Acute (10) Bipolar disorder: Status: Chronic (11) Alcoholism, chronic: Status: Chronic DS: Summary Hospital Course Hospital Course: ROLANDO Bermudez is a 67 year old female who fell on floor of her apartment on February 25. When she woke up on the floor and found she was unable to get up, so she called the ambulance and brought her to the ER. She had left ankle pain at the time. She was discharged home; a neighbor came and got her. She was having trouble getting into bed and was needing the assistance of her friend and was hanging onto the phillips. She slid down the wall at one point. She says her daughter has been helping her at home since she fell.? Due to back pain and the new pain in her left leg, she is now unable to care for herself or her cat, even though she lives in a small studio apartment. 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 Over the past year, she has been drinking heavily for over a year and admits that she has not taken a shower or bath in a year because she was afraid of falling or slipping in the bath/shower. She quit alcohol by weaning down the amount of alcohol she was drinking over the and then had her last drink on Feb 27. She also complains of: Abdominal distention since 7-8 months ago. Sweaty hands make it difficult to use walker. Swelling of both LE, L worse than R. C/o numbness in hands and feet this past year Closed left fibular fracture: ? Field C fibular fracture, s/p ORIF. Procedure Note Date of procedure: 03/10/22 Procedure: PREOPERATIVE DIAGNOSIS:? Left ankle Field C fracture POSTOPERATIVE DIAGNOSIS:? Left ankle Field C fracture NAME OF OPERATION:? ORIF SURGEON:? Jamison Jefferson MD RETAIL LEASING AGENT:? GLORIA Redman ANESTHESIA:? Spinal plus popliteal block ESTIMATED BLOOD LOSS:? 0 mL COMPLICATIONS:? None SPECIMENS:? None DRAINS:? None PREOPERATIVE ANTIBIOTICS:? Ancef 2 g INDICATIONS:? The patient is a 67-year-old who sustained a left ankle fracture.? ORIF was recommended. PLAN: ? They will remain strict nonweightbearing on the lower extremity.? They will continue to work on ice and elevation.? They will follow up in the office in 2 weeks for a wound check and three views of the ankle out of the splint, prior to being seen, in preparation for a short-leg nonweightbearing cast.? We are planning 6 weeks, nonweightbearing, 6 weeks weight-bearing as tolerates in the CAM walker to allow the syndesmosis to fully heal. Time Spent with Patient Time attestation: Total time spent providing and/or coordinating discharge services: Time spent: Greater than 30 minutes Specific discharge activities: They will remain strict nonweightbearing on the lower extremity Exam Narrative: Exam Narrative: Gen: NAD HEENT NCAT EOMI MMM CV: RRR s1 s2 LCTAB Abd: Soft, nt, nd Neuro: Alert, oriented, CN intact Const: Vital Signs, click to edit/add: Vital Signs - 24 hr 03/11/22 11:00 03/11/22 15:30 03/11/22 23:00 Temperature 98.2 F 98.1 F 98.5 F Pulse Rate [Left D orsalis Pedis] 92 93 Pulse Rate [Left P ulse Oximeter] 94 95 Respiratory Rate 16 18 16 Blood Pressure [Le ft Arm] 124/77 Blood Pressure [Ri ght Arm] 131/71 126/85 Pulse Oximetry 94 94 93 Oxygen Delivery Me thod Nasal Cannula Nasal Cannula Nasal Cannula Oxygen Flow Rate 1.5 0.5 0.5 03/12/22 04:45 03/12/22 07:00 Temperature 98.3 F 98.3 F Pulse Rate [Left D orsalis Pedis] 100 Pulse Rate [Left P ulse Oximeter] 102 H 99 Respiratory Rate 16 18 Blood Pressure [Le ft Arm] 144/82 H Blood Pressure [Ri ght Arm] 157/98 H Pulse Oximetry 91 90 Oxygen Delivery Me thod Nasal Cannula Room Air Oxygen Flow Rate 0.5 DS: Data Data Completed and Pending Labs on day of discharge: Labs from last 24 hours 03/12/22 03/12/22 03/08/22 05:40 05:40 23:15 POC Hct 35.2 VBG pH 7.414 VBG pCO2 43 VBG pO2 83.2 H VBG HCO3 27 Sodium 134 L Potassium 4.1 Chloride 102 Carbon Dioxide 25 BUN 5 L Creatinine 0.3 L Estimated Creat Clear 41.76 Estimated GFR 117 Glucose 98 Calcium 9.0 Ionized Calcium Brynn 1.24 Magnesium 1.7 Total Bilirubin 1.0 AST 142 H ALT 70 H Alkaline Phosphatase 152 H C-Reactive Protein 4.4 H Total Protein 6.5 Albumin 3.5 RBC Folate Request 147 L Preliminary micro results at discharge 03/08/22 23:15 Blood Culture - Preliminary Blood NO GROWTH AFTER 72 HOURS 03/08/22 22:45 Blood Culture - Preliminary Blood NO GROWTH AFTER 72 HOURS Discharge Plan Discharge Disposition: er [facility] Date of Admission: 03/09/22 11:48 Attending Provider on Discharge: Kelechi Waddell Consulting Providers: Jamison Jefferson Primary Care Provider: Flora Parker Condition: Stable Anticipated Discharge Date/Time: 03/12/22 10:47 Discharge Medications: New bisacodyl 10 mg Suppository 10 mg AL DAILY PRN (Reason: Constipation) Qty: 30 0RF melatonin 3 mg Tablet 3 - 6 mg PO HS PRNQty: 60 0RF folic acid 1 mg Tablet 1 mg PO DAILY Qty: 90 0RF potassium chloride 10 mEq Capsule, Extended Release 20 meq PO BIDWM Qty: 60 0RF oxycodone 5 mg Tablet 2.5 - 10 mg PO Q2H PRN (Reason: Pain) Qty: 30 0RF Xarelto 10 mg Tablet 10 mg PO QPM Qty: 90 0RF Rx Instructions: discontinue when ambulating with limitation thiamine mononitrate (vit B1) [Vitamin B-1 (mononitrate)] 100 mg Tablet 100 mg PO DAILY Qty: 90 0RF No Action No Known Home Medications Discharge Orders: Discharge Order (Routine); Ordered 03/12/22 Ordered By: Kelechi Waddell Additional Instructions: 1. Establish with psychiatrist for treatment of bipolar disorder, currently in a depressed state. 2. Referral to Gastroenterology for suspected alcoholic liver cirrhosis. 3. LFTs and INR in 2 weeks. Activity Level: No Weight Bearing Activity Detail: Hudson lift Discharge Diet: Regular and Other Follow Up Appointments: Flora Parker MD [Primary Care Provider] - 03/19/22 2:30 pm (For wellness visit and post hospital check up.) Jamison Jefferson MD [Staff Physician] - 03/24/22 10:10 am (At the [facility].) Admit to: SNF Discharge Potential: Good Length of Stay: <30 days Can use facility standing orders?: Yes Code Status: Full Code TEDs: Right Knee Rehab Potential: Good Therapy: Physical Therapy and Occupational Therapy Therapy Orders: Evaluate and Treat Oxygen: No Orders are good >30 days: Yes Signature: Kelechi Waddell
--- NOTE | 2022-03-12 11:24 | PC.SOCIAL ---
Discharge plan: Received call from [facility] stating they can accept pt today befroe 2:00 and requested she arrive at about 1:00pm. Pt meets criteria for transport by non-emergency ambulance. Met with pt who is aware and agrees this plan and requested healthcare social worker contact her daughter. Called dtr, Cathy, who is aware and pleased with this plan. Cathy will meet pt at [facility] when she arrives. Pt was provided with copy of Important Message from Medicare. PAS completed and submitted #[id number]. RN to arrange transportation.
--- NOTE | 2022-03-12 14:30 | PC.NURSE ---
PATIENT DISCHARGED TO [facility] AT 1400, UP WITH CEILING LIFT, SOFT CAST TO LEFT LOWER EXTREMITY CDI, PEDAL PULSES PRESENT, TOLERATING REGULAR DIET, RATING PAIN 6/10 IN LEFT ANKLE/LEG COMFORTABLE, DECLINING NEED FOR PRN PAIN MEDICATION, NO IV PRESENT, ALL BELONGINGS RETURNED TO PATIENT AND SENT WITH PATIENT, NURSE TO NURSE REPORT TO KRISTINA AT [facility], LEFT VIA EMS AROUND 1400.
--- NOTE | 2022-03-18 11:15 | SUR.PREOP ---
Verified with KL that charting complete.
== END 2022-03-12 14:00 | DRG 493 ==
LOC: ED 03-09 01:22 → MEDSURG 03-09 09:13
PROVIDERS: Orthopaedic Surgery; Admitting Provider Family Medicine; Emergency Provider Internal Medicine; PCP Family Medicine; Visit Provider Family Medicine
PROC: 0QSJ06Z Reposition Right Fibula with Intramedullary Internal Fixation Device, Open Approach (ICD-10-PCS; principal; 2022-03-10 11:15)
DX: S82.891A Other fracture of right lower leg, initial encounter for closed fracture (principal); N39.0 Urinary tract infection, site not specified; F10.20 Alcohol dependence, uncomplicated; W01.0XXA Fall on same level from slipping, tripping and stumbling without subsequent striking against object, initial encounter; Y92.039 Unspecified place in apartment as the place of occurrence of the external cause; B96.20 Unspecified Escherichia coli [E. coli] as the cause of diseases classified elsewhere; K70.10 Alcoholic hepatitis without ascites; F31.9 Bipolar disorder, unspecified; K70.0 Alcoholic fatty liver; R53.1 Weakness; R79.89 Other specified abnormal findings of blood chemistry; R14.0 Abdominal distension (gaseous); R74.8 Abnormal levels of other serum enzymes; K82.8 Other specified diseases of gallbladder; Z68.37 Body mass index [BMI] 37.0-37.9, adult; F41.9 Anxiety disorder, unspecified; G89.29 Other chronic pain; M54.50 Low back pain, unspecified; I10 Essential (primary) hypertension; M85.80 Other specified disorders of bone density and structure, unspecified site; J45.30 Mild persistent asthma, uncomplicated; E55.9 Vitamin D deficiency, unspecified; Z85.820 Personal history of malignant melanoma of skin
CPT/HCPCS: 01462; 01480; 36415; 64445; 64447; 70450; 71045; 72125; 73610; 76000; 76705; 76942; 80053; 80306; 81003; 81015; 82077; 82330; 82747; 82803; 83605; 83735; 84484; 85025; 85610; 86140; 87040; 87086; 87186; 87502; 87634; 87635; 93005; 93971; 94761; 97162; 97165; 97530; 97535; 99284; 99285; A4580; A9153; A9270; C1713; G0378; J0690; J0696; J1100; J2060; J2250; J2400; J2405; J2704; J2795; J3010

== ENCOUNTER 2022-03-12 13:50 | Outpatient (CLI) | payer OTHER, MEDICAID, SELFPAY | END 2022-03-12 13:51 | disposition home or self-care (01) | LOC: AMB 03-14 02:19 | PROVIDERS: PCP Family Medicine; Visit Provider Family Medicine | DX: Z74.01 Bed confinement status (principal) | CPT/HCPCS: A0425; A0428 ==

== ENCOUNTER 2022-12-15 16:15 | Inpatient (IN) | payer OTHER, SELFPAY ==
--- NOTE | 2022-12-07 14:19 | PC.SOCIAL ---
Per therapy, pt is coming in next week for surgery on 12/14/22. Pt lives at [facility] and would like to discharge to [facility] for rehab. Phone call to Rebecca in admissions at [facility] at [phone]. Rebecca informs that she is aware that pt is needing SNF next week and they will be holding a bed for pt. Rebecca requests that social work send referral as usual when pt is in hospital and follow up with a phone call to [facility] admissions.
[2022-12-14] VITALS (22 sets, daily range): BP systolic 83–148; BP diastolic 57–92; PULSE 67–126; RESP 16–19; TEMP 35.8–36.9; O2SAT 91–95; BMI 45.3
[2022-12-14] MEDS: ACETAMINOPHEN 500 MG TABLET 1000 MG PO ×3 (07:08→19:24)
[2022-12-14] MEDS: CELECOXIB 200 MG CAPSULE PO (07:08)
[2022-12-14] MEDS: OXYCODONE (CR) 10 MG TAB.ER.12H PO (07:08)
[2022-12-14] MEDS: LACTATED RINGERS 1000 ML 1,000 ML 100 ML IV ×2 (07:10→10:02)
[2022-12-14] MEDS: SODIUM CHLORIDE 0.9 % (FLUSH) 10 ML SYRINGE IVF (08:17)
[2022-12-14] MEDS: fentaNYL 100 MCG/2 ML inj IVP (08:35)
[2022-12-14] MEDS: MIDAZOLAM HCL 1 MG/ML inj IVP (08:35)
--- NOTE | 2022-12-14 08:41 | SUR.PREOP ---
TIME?OUT:?0834 PT/RN/MDA?VERIFICATION?OF?SURGICAL?SITE Left Knee,?PROCEDURE Adductor Canal Block,?AND?CONSENT OBTAINED?PRIOR?TO?INVASIVE?PROCEDURE.
[2022-12-14] MEDS: CEFAZOLIN 2 GM INJ IVP (08:55)
[2022-12-14] MEDS: TRANEXAMIC ACID 100 MG/ML INJ 1000 MG IV (08:58)
--- NOTE | 2022-12-14 09:30 | W.PM.NB ---
Nerve Block Nerve Block Time Seen by Provider: 08:39 Date Seen: 12/14/22 Type of block requested by surgeon for post-operative analgesia: adductor canal Side: left Time out performed: Yes Verification of patient name: Yes Verification of date of : Yes Site marking: site marked Name of person performing procedure: Micheal Continuous monitoring Was continuous monitoring of O2 sat, B/P, director television news, recorded every 15 minutes?: Yes Procedure Checklist: sterile prep, needles and gloves Ultrasound guided. Images saved: Yes Medications given in 5ml increments after negative aspiration: Ropivicaine %: 0.5 mL: 20 Needle gauge: 20 Decadron (mg): 10 Precedex (mcg): 25 Patient tolerated procedure well: Yes Additional comments: Needle noted adjacent to nerve Block Charges Block Charge (with Pro Fee): Femoral Nerve Use of Ultrasound Machine for Block: Yes- US Guidance/pain block
--- NOTE | 2022-12-14 09:31 | P.NB_ITS ---
Nerve Block Nerve Block Time Seen by Provider: 08:39 Date Seen: 12/14/22 Type of block requested by surgeon for post-operative analgesia: geniculars Side: left Time out performed: Yes Verification of patient name: Yes Verification of date of : Yes Site marking: site marked Name of person performing procedure: Micheal Continuous monitoring Was continuous monitoring of O2 sat, B/P, color depositing machine tender, recorded every 15 minutes?: Yes Procedure Checklist: sterile prep, needles and gloves Medications given in 5ml increments after negative aspiration: Ropivicaine %: 0.5 mL: 9 Needle gauge: 25 Patient tolerated procedure well: Yes Block Charges Block Charge (with Pro Fee): Genicular Nerve Block Use of Ultrasound Machine for Block: No
--- NOTE | 2022-12-14 09:31 | W.ANESCHARGE ---
Anesthesia Charges Start Date/Time Anesthesia Start Date: 12/14/22 Anesthesia Start Time: 08:48 Stop Date/Time Anesthesia Stop Date: 12/14/22 Anesthesia Stop Time: 10:59
--- NOTE | 2022-12-14 10:17 | CRLHL7_ITS ---
For Patients: As a result of the Cures Act, medical imaging exams and procedure reports are released immediately into your electronic medical record. You may view this report before your referring provider. If you have questions, please contact your health care provider. Indication: POSTOP TKA Technique: Two views left knee Findings/Impression: Hardware from a left total knee arthroplasty is in satisfactory position. Bone alignment is normal. No sign of acute fracture. Postop changes are within normal limits. Dictated by Abhi Ignacio MD @ 12/14/2022 11:21:58 AM (Electronically Signed)
--- NOTE | 2022-12-14 10:20 | PM.ORPRC ---
Procedure Note Date of procedure: 12/14/22 Procedure: PREOPERATIVE DIAGNOSIS: Left knee osteoarthritis POSTOPERATIVE DIAGNOSIS: Left knee osteoarthritis NAME OF OPERATION: Left total knee arthroplasty SURGEON: Jamison Jefferson MD PERIANESTHESIA MANAGER: GLORIA Redman ANESTHESIA: Spinal ESTIMATED BLOOD LOSS: 0 mL COMPLICATIONS: None SPECIMENS: None DRAINS: None PREOPERATIVE ANTIBIOTICS: Ancef 2 grams, antibiotic impregnated cement IMPLANTS: 1. J&J Attune # 6 narrow posterior stabilized femur 2. # 5 fixed-bearing tibia with a 14 mm x 50 mm stem 3. #6 posterior stabilized, 5 mm fixed-bearing polyethylene 4. 35 patella INDICATIONS: The patient is a 67-year-old with a longstanding history of severe, unrelenting left knee pain secondary to end-stage (grade IV) left knee osteoarthritis. Despite appropriate nonoperative management, including activity modification, anti-inflammatories, [id number]-[id number] pain medication, bracing, physical therapy, and injections they continue to have pain and disability. Operative intervention was offered. The risks, benefits and expected outcomes were discussed in detail. These included but were not limited to: Infection, bleeding, injury to blood vessel or nerve, venous thromboembolism. All questions were answered to their satisfaction. Use of an assistant professor of psychology was necessary throughout the case for patient positioning and safety, soft tissue retraction, and closure. A modifier 22 should be added to this case. With a BMI of 45.4 kg/meter squared and a 50 mm layer of adipose over the extensor mechanism this added time to complete the dissection. Additionally, with an increased BMI a tibial stem was required. These factors added 33% more time to complete the case. PROCEDURE: Spinal anesthesia was administered. The patient was placed supine on the operating table. The assistant professor of psychology made sure the patient was positioned appropriately. The lower extremity was prepped and draped in the usual sterile fashion. The limb was exsanguinated with the Andrew bandage. The pneumatic tourniquet was inflated to 300 mmHg. A standard anterior incision was made with the knee in flexion. Subcutaneous dissection was sharply taken through fascial layer #1. Full-thickness medial and lateral flaps were elevated. The assistant professor of psychology retracted the soft tissues and protected them throughout the case. A standard medial parapatellar approach was made. The patella was everted. The infrapatellar fat pad was preserved. The menisci and cruciate ligaments were sharply d?brided. Marginal osteophytes were d?brided with the rongeur. The drill was used to penetrate the femoral canal. The canal was aspirated and irrigated with pulse lavage. The intramedullary femoral guide was placed for a 5-degree valgus cut, removing 10 mm off the distal femur. The saw was used to make the cut. Whitesides line and the trans epicondylar axis were marked. The femoral sizing guide was pinned onto the distal femur. Three degrees of external rotation nicely parallels the transepicondylar axis. Pins were placed for posterior referencing. The four-in-one cutting guide was pinned onto the distal femur. The anterior, posterior, and chamfer cuts were made. The assistant professor of psychology protected the collateral ligaments. The box cutting guide was pinned. The box cuts were made. The boxed trial was placed and was an excellent fit. Drill holes for the lugs were made. Attention was then turned to the proximal tibia. The extramedullary tibial guide was placed for a neutral varus/valgus cut with 5 degrees of posterior slope, removing 2 mm based off the medial tibial surface. The assistant professor of psychology protected the collateral ligaments and the neurovascular bundle. The saw was used to make the cut. Trial components were placed. The knee was nicely balanced in both flexion and extension. The trial components were removed. The tray was placed in appropriate rotation, parallel to our tibial cutting pins. It was pinned by the assistant professor of psychology and the drill x2 was used. The stemmed tibial trial was placed. The punch was used. The tray was removed. The punch was used again. We placed a bone plug in the femoral canal. Attention was then turned to the patella. [place] patellar thickness was 22.5 mm. The lobster claw resection guide was used with the 9.5 mm katey. The saw was used to make the cut. Drill holes were made by the assistant professor of psychology. The trial was placed and was an excellent fit. Cancellous surfaces were irrigated with pulse lavage and thoroughly dried by the assistant professor of psychology. We cemented the tibial component, then the femoral component. We impacted the 5 mm polyethylene onto the tibial tray. The knee was brought into full extension. We then cemented the patellar component. Excessive cement was removed. The cement was allowed to harden. The knee was taken through a range of motion and was found to be nicely balanced in both flexion and extension. The patella tracks centrally. The assistant professor of psychology did a three minute dilute Betadine solution soak. The assistant professor of psychology irrigated the wound with 3 liters of normal saline via pulse lavage. The assistant professor of psychology reapproximated the extensor mechanism with #1 Vicryl in an interrupted [id number]-[id number]-lukmh fashion. The assistant professor of psychology then ran the extensor mechanism with a #1 PDO Stratafix. The assistant professor of psychology closed the subcutaneous tissues with a 3-0 Stratafix and the skin with a running 3-0 Stratafix in a subcuticular fashion. Glue was used to seal the skin. The assistant professor of psychology placed a dry dressing, GABRIELLE stocking, and Polar Care. Sponge and needle counts were correct x2. The patient tolerated the procedure well. There were no apparent complications. They were carefully transferred to the hospital bed and taken to the postanesthesia care unit in satisfactory condition. PLAN: The patient will be mobilized with physical therapy. Aspirin will be used for DVT prophylaxis. They will be discharged to home once medically appropriate.
--- NOTE | 2022-12-14 11:04 | W.ANESCHARGE ---
Anesthesia Charges Start Date/Time Anesthesia Start Date: 12/14/22 Anesthesia Start Time: 08:48 Stop Date/Time Anesthesia Stop Date: 12/14/22 Anesthesia Stop Time: 10:59
[2022-12-14] MEDS: diphenhydrAMINE 50 MG/ML inj IVP (12:10)
[2022-12-14] MEDS: OXYCODONE 5 MG TABLET PO ×2 (13:24→16:16)
--- NOTE | 2022-12-14 13:28 | PC.SOCIAL ---
Discharge planning- Phone call to Rebecca in admissions at [facility] at [phone]. Rebecca confirms she is still holding bed for pt. Rebecca requests initial information be sent today. Secure e-mailed referral to Rebecca at [email or web address]. This worker will provide updated MD progress note, PT, and OT notes tomorrow morning. Social work will follow up as needed.
--- NOTE | 2022-12-14 14:59 | P.IMCN_ITS ---
Date of Consult Consult date: 12/14/22 Requesting Physician: Orthopedics Primary Care Provider: Tanisha Adame CNP Consult Narrative Reason for consult: Medical management Narrative: Zainab Bermudez is a 67 year old female past medical history significant for alcohol abuse with alcoholic hepatitis, last alcohol use 02/27/2022, peripheral neuropathy, chronic low back pain, Jimenes's palsy, bipolar disorder stable on Cymbalta is POD#0 status post left total knee arthroplasty with Dr. Jefferson. Currently, patient states pain is appropriately managed. Tolerating orals without nausea vomiting. There have been no perioperative complications or nursing concerns reported. Estimated total blood loss documented as 0 ml. Updated and reviewed the active medical problems, past medical history, past surgical history, social history, allergies and medications in our electronic EMR. Review of Systems Narrative: REVIEW OF SYSTEMS: Complete review of systems performed and negative unless otherwise stated in HPI or below. [facility] Medical History Health care directive on file ?Z78.9 - Other specified health status (ICD-10) Elevated MCV ?R71.8 - Other abnormality of red blood cells (ICD-10) Well controlled mild persistent asthma ?J45.30 - Mild persistent asthma, uncomplicated (ICD-10) Reactive gastropathy (05/10/10) ?K31.89 - Other diseases of stomach and duodenum (ICD-10) Primary osteoarthritis ?M19.91 - Primary osteoarthritis, unspecified site (ICD-10) Tubular adenoma of colon (05/10/10) ?D12.6 - Benign neoplasm of colon, unspecified (ICD-10) Epistaxis ?R04.0 - Epistaxis (ICD-10) Body mass index (BMI) of 30.0 to 39.9 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) ?M22.40 - Chondromalacia patellae, unspecified knee (ICD-10) Chronic back pain ?M54.9 - Dorsalgia, unspecified (ICD-10) ?G89.29 - Other chronic pain (ICD-10) Vitamin D deficiency (2018) ?E55.9 - Vitamin D deficiency, unspecified (ICD-10) Poorly controlled mild persistent asthma ?J45.30 - Mild persistent asthma, uncomplicated (ICD-10) Osteopenia ?M85.80 - Other specified disorders of bone density and structure, unspecified site (ICD-10) Malignant melanoma (2012) ?C43.9 - Malignant melanoma of skin, unspecified (ICD-10) Hypertension ?I10 - Essential (primary) hypertension (ICD-10) Chronic low back pain ?M54.50 - Low back pain, unspecified (ICD-10) ?G89.29 - Other chronic pain (ICD-10) Bipolar disorder (2009) ?F31.9 - Bipolar disorder, unspecified (ICD-10) Anxiety and depression ?F41.9 - Anxiety disorder, unspecified (ICD-10) ?F32.A - Depression, unspecified (ICD-10) Surgical History S/P ORIF (open reduction internal fixation) fracture (03/10/22) ?Z98.890 - Other specified postprocedural states (ICD-10) ?Z87.81 - Personal history of (healed) traumatic fracture (ICD-10) Status post arthroscopy of left knee (02/10/06) ?Z98.890 - Other specified postprocedural states (ICD-10) History of tonsillectomy ?Z90.89 - Acquired absence of other organs (ICD-10) History of melanoma excision (2012) ?Z98.890 - Other specified postprocedural states (ICD-10) ?Z85.820 - Personal history of malignant melanoma of skin (ICD-10) History of hysterectomy (1991) ?Z90.710 - Acquired absence of both cervix and uterus (ICD-10) History of carpal tunnel surgery of right wrist (11/27/08) ?Z98.890 - Other specified postprocedural states (ICD-10) Family History Father Alcoholism Myocardial infarction Mother Diabetes Social History Narrative: was drinking 2 - 16oz budwizers and 8 oz rum daily alcohol abuse- 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 , 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[employer], 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 excessive drinking of alcohol non-smoker walking an animal- walks her cat daily In the past 12 months, utilities in danger of being shut off: no In past 12 months, lack of transportation kept you from medical appts, meetings, work, or getting things needed for daily living: no In the past 12 mos, have been you worried that your food would run out before you had money to buy more?: never true In the past 12 mos, the food you bought just didn't last and you didn't have money to buy more?: never true Smoking Status: Never smoker Second hand tobacco smoke exposure: No How often do you have a drink containing alcohol: never AUDIT-C Alcohol total score: 0 Non-prescribed substance use: denies use Caffeine: Yes How often does anyone, including family, friends and others, physically hurt you : never How often does anyone, including family, friends and others, insult or talk down to you: never How often does anyone, including family, friends and others, threaten you with harm: never How often does anyone, including family, friends and others, scream or curse at you: never service: No Meds Home Medications and Allergies Home Medications Medication Instructions Recorded Confirmed Type paroxetine HCl 20 mg tablet (Paxil) 20 mg PO QHS 04/21/22 12/14/22 History acetaminophen 500 mg tablet 1,000 mg PO Q6H PRN 05/31/22 12/14/22 History (Tylenol Extra Strength) duloxetine 30 mg capsule,delayed 30 mg PO BID 11/17/22 12/14/22 History release aripiprazole 2 mg tablet 2 mg PO DAILY 12/14/22 12/14/22 History carboxymethylcellulose sodium 0.5 1 drp ophthalmic (eye) TID 12/14/22 12/14/22 History % eye drops (Lubricant Eye Drops) hydroxyzine HCl 25 mg tablet 25 mg PO 3XD PRN 12/14/22 12/14/22 History ketoconazole 2 % topical cream 1 applic topical BID 12/14/22 12/14/22 History melatonin 3 mg tablet 5 mg PO HS PRN 12/14/22 12/14/22 History sennosides 8.6 mg-docusate sodium 1 tab-cap PO DAILY 12/14/22 12/14/22 History 50 mg tablet (Senna-Time S) Allergies Allergy/AdvReac Type Severity Reaction Status Date / Time Molds & Smuts Allergy Mild shortness Uncoded 11/17/22 10:00 of breath [place] tar Allergy Mild shortness Uncoded 11/17/22 10:00 of breath Exam Narrative: Exam Narrative: PHYSICAL EXAM General: Pleasant, conversant, mildly anxious otherwise NAD HEENT: Normocephalic, atraumatic, sclera white, EOMI, oral mucosa moist Cardiovascular: RRR, S1S2. No pitting edema Pulmonary: CTA bilaterally without rhonchi, rales, expiratory wheezes. No dyspnea Abdominal: Soft, nondistended, NTTP Neurological: Alert, answering questions appropriately, cranial nerves intact, no focal findings Extremities: No gross joint deformity or swelling. Postoperative dressing in place, dry. Neurovascularly intact Skin: Warm, dry. Const: Vital Signs, click to edit/add: Vital Signs - 24 hr 12/14/22 07:35 12/14/22 08:30 12/14/22 08:35 Temperature 98.2 F Pulse Rate 91 90 91 Respiratory Rate 16 16 16 Blood Pressure 141/88 H 133/77 144/91 H Pulse Oximetry 93 95 95 Oxygen Delivery Me thod Room Air Nasal Cannula Nasal Cannula Oxygen Flow Rate 2 2 12/14/22 08:40 12/14/22 10:55 12/14/22 11:00 Temperature 98.4 F Pulse Rate 90 72 67 Respiratory Rate 16 16 16 Blood Pressure 134/85 83/57 L 109/72 Pulse Oximetry 95 93 92 Oxygen Delivery Me thod Nasal Cannula Room Air Room Air Oxygen Flow Rate 2 12/14/22 11:05 12/14/22 11:10 12/14/22 11:15 Temperature 97.9 F Pulse Rate 84 76 82 Respiratory Rate 16 16 16 Blood Pressure 95/60 100/68 85/70 L Pulse Oximetry 91 92 92 Oxygen Delivery Me thod Room Air Room Air Room Air Oxygen Flow Rate 12/14/22 11:20 12/14/22 11:25 Temperature 97.8 F Pulse Rate 85 85 Respiratory Rate 16 16 Blood Pressure 106/69 112/74 Pulse Oximetry 93 92 Oxygen Delivery Me thod Room Air Room Air Oxygen Flow Rate Assessment and Plan Assessment and plan (1) Osteoarthritis of left knee: Problem comment: POD#0 s/p left TKA. Perioperative management including pain control, anticoagulation, therapy per Orthopedic Surgery. Plans to discharge to home with family Status: Acute Plan Chronic medical comorbidities have been reviewed and will be monitored. Will continue Abilify and Cymbalta during hospital stay, otherwise recommend resuming home medications upon discharge. Hospital medicine team will sign off. Please contact our service with any questions or concerns
[2022-12-14] MEDS: LACTATED RINGERS 1000 ML 1,000 ML 35 ML IV (17:07)
[2022-12-14] MEDS: CEFAZOLIN 2 GM in 0.9 % SODIUM CHLORIDE Mini-bag 100 ML IVPB (17:07)
--- NOTE | 2022-12-14 19:38 | PC.NURSE ---
End of shift-- Very pleasant and cooperative, alert and oriented, though anxious patient arrived from PACU at approximately 1130. VSS, though moderately tachycardic this evening with HR 110s and pt is afebrile. SPO2 maintained >90% on RA most of the evening. Pain appears well controlled with Oxycodone as needed and scheduled Tylenol. Dressing to left knee is C/D/I and CMS is WNL. Cryocuff in place. She denied nausea, tolerated a regular diet and drank large amounts of fluids this evening. She has voided >1500ml of urine today and pt was saline locked. She was up to the BR with assist of 1, belt and walker and tolerated it well. Report to TENISHA Delgado.
[2022-12-14] MEDS: SENNOSIDES 1 TAB TABLET 2 TAB PO (21:26)
[2022-12-14] MEDS: ASPIRIN 81 MG TABLET EC PO (21:26)
[2022-12-14] MEDS: DULOXETINE 30 MG CAPSULE DR PO (21:26)
[2022-12-15] MEDS: ACETAMINOPHEN 500 MG TABLET 1000 MG PO ×4 (01:17→20:27)
[2022-12-15] MEDS: CEFAZOLIN 2 GM in 0.9 % SODIUM CHLORIDE Mini-bag 100 ML IVPB (01:18)
[2022-12-15 03:00] VITALS: BP 126/86; PULSE 95; RESP 18; TEMP 36.9; O2SAT 93
--- NOTE | 2022-12-15 06:15 | PC.NURSE ---
End of shift report [id number]: Alert and oriented x 4. Pain to left knee rated between 2-4/10 this shift which is an acceptable pain level for patient. Well managed with scheduled tylenol and cryocuff. CMS to left lower extremity intact. Dressing to left knee clean, dry and intact. Patient transfers with SBA and ambulates with walker and gait belt. Stress/urge incontinence of urine, patient reports that is per her baseline. Right side facial droop, Zainab reports she recently was diagnosed with Jimenes's Palsy.
[2022-12-15 06:55] LABS: Basophils Percent Auto 0.1 % (0.0-3.0); Hematocrit 35.5 % (33.0-51.0); Hemoglobin* 11.7 gm/dL (12.0-16.0); Immature Granulocytes Pct Auto 0.3 %; Lymphocytes Percent Auto 8.2 % (20-44); Mean Corpuscular HGB Conc 33 gm/dL (32-36); Mean Corpuscular Hemoglobin 29 pg (26-34); Mean Corpuscular Volume 87 fL (80-100); Monocytes Percent Auto 8.7 % (0.0-11.0); Neutrophils Percent Auto 82.7 % (42.0-72.0); Platelet Count* 167 K/uL (140-440); RDW Coefficient of Variation % 13.6 % (11.5-15.5); Red Blood Count 4.08 m/uL (4.00-5.20); White Blood Count* 13.71 K/uL (4.50-11.00)
[2022-12-15 07:08] LABS: Potassium* 4.2 mmol/L (3.6-5.1); Prothrombin Time 13.8 Seconds; Sodium* 136 mmol/L (135-149)
[2022-12-15 07:11] LABS: Blood Urea Nitrogen* 11 mg/dL (7-30); Creatinine* 0.4 mg/dL (0.5-1.5); Est. Creatinine Clearance* 41.76; Estimated Glomerular Filt Rate 109 ml/min
[2022-12-15 07:17] LABS: Slide Review Reflex No
[2022-12-15 08:00] VITALS: BP 132/88; PULSE 97; RESP 18; TEMP 36.8; O2SAT 94
[2022-12-15] MEDS: OXYCODONE 5 MG TABLET PO ×3 (08:04→18:56)
[2022-12-15] MEDS: SENNOSIDES 1 TAB TABLET 2 TAB PO ×2 (08:08→20:28)
[2022-12-15] MEDS: DULOXETINE 30 MG CAPSULE DR PO ×2 (08:08→20:28)
[2022-12-15] MEDS: ASPIRIN 81 MG TABLET EC PO ×2 (08:09→20:27)
--- NOTE | 2022-12-15 08:27 | P.ORPN_ITS ---
Subjective Subjective Time Seen by Provider: 07:15 Date Seen: 12/15/22 Principal diagnosis: Status post left knee replacement Interval history: Zainab is comfortable this morning she is in her recliner. Upon discharge today she will go to [facility] in [place]. She currently resides in the assisted living portion. She denies nausea and vomiting. Ortho Exam Narrative Exam Narrative: Alert and oriented x3. Patient is in no acute distress. Converses without labored breathing. Hearing is grossly intact. Ambulates with a walker. Examination of the left knee shows the dressing is intact. Mild soft tissue edema. Mild effusion. No erythema drainage or sign of infection. Quad strength 5/5. Bilateral calf soft and nontender. CMS is intact left lower extremity. Const Vital Signs, click to edit/add: Vital Signs - 24 hr 12/14/22 08:30 12/14/22 08:35 12/14/22 08:40 Temperature Pulse Rate 90 91 90 Pulse Rate [Pulse Oximeter] Respiratory Rate 16 16 16 Blood Pressure 133/77 144/91 H 134/85 Blood Pressure [Left Arm] Blood Pressure [Right Arm] Pulse Oximetry 95 95 95 Oxygen Delivery Method Nasal Cannula Nasal Cannula Nasal Cannula Oxygen Flow Rate 2 2 2 12/14/22 10:55 12/14/22 11:00 12/14/22 11:05 Temperature 98.4 F Pulse Rate 72 67 84 Pulse Rate [Pulse Oximeter] Respiratory Rate 16 16 16 Blood Pressure 83/57 L 109/72 95/60 Blood Pressure [Left Arm] Blood Pressure [Right Arm] Pulse Oximetry 93 92 91 Oxygen Delivery Method Room Air Room Air Room Air Oxygen Flow Rate 12/14/22 11:10 12/14/22 11:15 12/14/22 11:20 Temperature 97.9 F Pulse Rate 76 82 85 Pulse Rate [Pulse Oximeter] Respiratory Rate 16 16 16 Blood Pressure 100/68 85/70 L 106/69 Blood Pressure [Left Arm] Blood Pressure [Right Arm] Pulse Oximetry 92 92 93 Oxygen Delivery Method Room Air Room Air Room Air Oxygen Flow Rate 12/14/22 11:25 12/14/22 11:32 12/14/22 11:45 Temperature 97.8 F 96.4 F L 96.4 F L Pulse Rate 85 90 Pulse Rate [Pulse Oximeter] 85 Respiratory Rate 16 18 18 Blood Pressure 112/74 Blood Pressure [Left Arm] Blood Pressure [Right Arm] 115/75 117/80 Pulse Oximetry 92 93 Oxygen Delivery Method Room Air Room Air Room Air Oxygen Flow Rate 12/14/22 12:00 12/14/22 12:15 12/14/22 12:30 Temperature 96.4 F L Pulse Rate Pulse Rate [Pulse Oximeter] 85 92 90 Respiratory Rate 18 16 18 Blood Pressure Blood Pressure [Left Arm] Blood Pressure [Right Arm] 129/78 117/92 H 119/79 Pulse Oximetry 92 93 93 Oxygen Delivery Method Room Air Room Air Room Air Oxygen Flow Rate 2 12/14/22 13:00 12/14/22 13:30 12/14/22 14:00 Temperature Pulse Rate Pulse Rate [Pulse Oximeter] 99 113 H 108 H Respiratory Rate 18 18 18 Blood Pressure Blood Pressure [Left Arm] Blood Pressure [Right Arm] 133/84 148/92 H 122/76 Pulse Oximetry 92 91 92 Oxygen Delivery Method Room Air Room Air Room Air Oxygen Flow Rate 2 12/14/22 15:00 12/14/22 19:00 12/14/22 23:00 Temperature 97.1 F L Pulse Rate Pulse Rate [Pulse Oximeter] 126 H Respiratory Rate 18 Blood Pressure Blood Pressure [Left Arm] 147/83 H Blood Pressure [Right Arm] Pulse Oximetry 92 93 93 Oxygen Delivery Method Room Air Oxygen Flow Rate 12/14/22 23:00 12/15/22 03:00 12/15/22 08:00 Temperature 97.8 F 98.5 F Pulse Rate Pulse Rate [Pulse Oximeter] 107 H 95 Respiratory Rate 19 18 Blood Pressure Blood Pressure [Left Arm] 142/82 H Blood Pressure [Right Arm] 126/86 Pulse Oximetry 94 93 94 Oxygen Delivery Method Room Air Room Air Oxygen Flow Rate 12/15/22 08:00 Temperature 98.2 F Pulse Rate Pulse Rate [Pulse Oximeter] 97 Respiratory Rate 18 Blood Pressure Blood Pressure [Left Arm] Blood Pressure [Right Arm] 132/88 Pulse Oximetry 94 Oxygen Delivery Method Room Air Oxygen Flow Rate Assessment and Plan Assessment and plan (1) Status post left knee replacement: Problem details: 12/14/2022 Status: Acute Assessment and Plan: Plan for discharge is today to [facility] if she meets discharge criteria. DVT prophylaxis includes aspirin 81 mg twice daily x1 month, Tor stockings x1 month may remove for 1 hr per day, frequent ambulation Remove dressing in 1 week. Observe wound and phone Orthopedics with any questions or concerns Return to clinic in 1 week for a wound check Return to clinic in 6 weeks with surgeon Minimize narcotic use. Wean off and discontinue soon as possible. Activities as tolerated. No strenuous activity. Outpatient physical therapy as scheduled. Ice and elevate the operative extremity. No restriction on ice. She has no history of DVT.
[2022-12-15 11:15] VITALS: BP 117/76; PULSE 93; RESP 16; TEMP 36.7; O2SAT 94
--- NOTE | 2022-12-15 14:42 | PC.NURSE ---
Pt awaiting insurance confirmation of acceptance to [facility] for rehab and strengthening, she resides there currently in an apartment. Please see eMar for meds provided on day shift. Pain 0-2 at rest, 7 with increased activity this afternoon.
[2022-12-15 15:00] VITALS: BP 120/79; PULSE 91; RESP 16; TEMP 36.7; O2SAT 95
--- NOTE | 2022-12-15 15:30 | PC.SOCIAL ---
Discharge planning- Secure emailed updated therapy notes to Rebecca at [facility]. [facility] submitted prior auth from pt's insurance ([employer]). Pt can admit to [facility] tomorrow 12/16/2022. Provided update to pt. Pt called daughter to discuss transportation and daughter (Cathy) can pick pt up at 10:00 am tomorrow and provide transportation to [facility]. Provided update to charge nurse. Provided update to Rebecca at [facility]. Completed Preadmission screening. Confirmation #[id number]. Faxed PAS to [facility]. Provided update to therapy on discharge date/time. Social work will follow up as needed.
[2022-12-15 19:00] VITALS: BP 137/92; PULSE 97; RESP 20; TEMP 36.5; O2SAT 95
[2022-12-15 23:00] VITALS: BP 113/71; PULSE 96; RESP 20; TEMP 36.6; O2SAT 93; O2SAT 96
[2022-12-16] MEDS: ACETAMINOPHEN 500 MG TABLET 1000 MG PO (01:33)
[2022-12-16] MEDS: CARBOXYMETHYLCELLULOSE (REFRESH PLUS) TEARS 1 DROP EYE-BOTH (01:34)
[2022-12-16 03:00] VITALS: BP 132/78; PULSE 90; RESP 20; TEMP 36.5; O2SAT 90
[2022-12-16] MEDS: OXYCODONE 5 MG TABLET PO ×2 (03:38→07:55)
--- NOTE | 2022-12-16 05:18 | PC.NURSE ---
Shift note: Pt is alert, oriented, pleasant and cooperate with treatment and care. Pain has been rated at 2, only requested for PRN Oxycodone at 0400 for pain level of about 7. A1, walker and GB. No BM yet but confirmed passing gas. Dressing dry and clean. Cryo cuff on throughout the shift. Pt had adequate sleep.
[2022-12-16 06:34] LABS: Basophils Absolute Auto 0.03 K/uL (0.00-0.30); Basophils Percent Auto 0.4 % (0.0-3.0); Eosinophils Absolute Auto 0.18 K/uL (0.00-0.50); Eosinophils Percent Auto 2.2 % (0.0-7.0); Hematocrit 35.7 % (33.0-51.0); Hemoglobin* 11.7 gm/dL (12.0-16.0); Immature Granulocytes Abs Auto 0.03 K/uL (0.00-0.30); Immature Granulocytes Pct Auto 0.4 %; Lymphocytes Percent Auto 18.9 % (20-44); Mean Corpuscular HGB Conc 33 gm/dL (32-36); Mean Corpuscular Hemoglobin 29 pg (26-34); Mean Corpuscular Volume 88 fL (80-100); Monocytes Percent Auto 10.6 % (0.0-11.0); Neutrophils Absolute Auto 5.49 K/uL (1.7-7.0); Neutrophils Percent Auto 67.5 % (42.0-72.0); Platelet Count* 141 K/uL (140-440); RDW Coefficient of Variation % 13.9 % (11.5-15.5); Red Blood Count 4.04 m/uL (4.00-5.20); White Blood Count* 8.13 K/uL (4.50-11.00)
[2022-12-16 06:51] LABS: Slide Review Reflex No
[2022-12-16 06:54] LABS: Prothrombin Time 13.8 Seconds
[2022-12-16 07:30] LABS: Sodium* 137 mmol/L (135-149)
[2022-12-16 07:33] LABS: Blood Urea Nitrogen* 10 mg/dL (7-30); Creatinine* 0.5 mg/dL (0.5-1.5); Est. Creatinine Clearance* 41.76; Estimated Glomerular Filt Rate 103 ml/min
[2022-12-16 07:40] VITALS: BP 119/79; PULSE 95; RESP 20; TEMP 36.3; O2SAT 93
[2022-12-16] MEDS: ASPIRIN 81 MG TABLET EC PO (09:42)
[2022-12-16] MEDS: SENNOSIDES 1 TAB TABLET 2 TAB PO (09:42)
[2022-12-16] MEDS: DULOXETINE 30 MG CAPSULE DR PO (09:43)
--- NOTE | 2022-12-16 11:19 | PC.NURSE ---
Discharge note: Pt alert and oriented, pleasant and cooperative. Vitals stable, on RA. Tolerating diet, voiding without issue. Pain controlled, PRN Oxycodone admin prior to therapy sessions. Pt up w/ Ax1 w/ walker and gaitbelt. Discharge instructions provided to pt and receiving facility. Pt signed belongings form, left with all belongings. Lac[employer]ader called and gave report to receiving facility of [facility], questions answered. Pt picked up by her daughter to bring pt to [facility], pt given WC ride to daughter's car. Pt left facility shortly after 10am this AM.
== END 2022-12-16 10:15 | DRG 470 ==
LOC: OR 16:16 → MEDSURG 16:16
PROVIDERS: Admitting Provider Family Medicine; PCP Nurse Practitioner Family; Visit Provider Orthopaedic Surgery
PROC: 0SRD0J9 Replacement of Left Knee Joint with Synthetic Substitute, Cemented, Open Approach (ICD-10-PCS; CPT 27447; principal; 2022-12-14 08:45)
DX: M17.12 Unilateral primary osteoarthritis, left knee (principal); G89.18 Other acute postprocedural pain; J45.30 Mild persistent asthma, uncomplicated; M85.80 Other specified disorders of bone density and structure, unspecified site; I10 Essential (primary) hypertension; F31.9 Bipolar disorder, unspecified; F41.9 Anxiety disorder, unspecified; F10.10 Alcohol abuse, uncomplicated
CPT/HCPCS: 01402; 36415; 64447; 64454; 73560; 76942; 82565; 84132; 84295; 84520; 85025; 85610; 87081; 94761; 97110; 97116; 97162; 97165; 97530; 97535; A9270; C1776; J0690; J1100; J1200; J2250; J2371; J2405; J2704; J2795; J3010; J7120